=== PATIENT | female | born 1950 | race Caucasian/White ===

== ENCOUNTER 2017-04-27 14:51 | Inpatient (IN) | payer OTHER ==
[~2017-04-27] VITALS: Ht 167.6 cm; Wt 84.7 kg
[~2017-04-27 14:51] MED LIST: ASPI-628 PO; ATRV10T PO; OMEP-113 PO; PARO20TA5 PO
[2017-04-27 14:54] VITALS: BP 137/58; PULSE 84; RESP 16; O2SAT 99
--- NOTE | 2017-04-27 14:58 | ED.REPORT ---
HPI-Neurologic Deficit Date of Service Apr 27, 2017 ED Provider: The patient is a 66 year old female who was brought to the emergency department by her for confusion that began suddenly 30 minutes prior to arrival. Her states the patient came in from the deck and suddenly didn't know anything. She was unaware that they were on vacation or where they were. The patient has no complaints at this time. She is able to walk normally. The patient was at [facility] several years ago for a intracranial hemorrhage s/p ground level fall. Nursing Notes Stated Complaint: LOSS OF MEMORY Chief Complaint: Neuro Symptoms/ Deficits Nursing Notes Reviewed: Yes Allergies: Coded Allergies: citalopram (Verified Allergy, Unknown, 04/20/15) fluoxetine (Verified Allergy, Unknown, 04/20/15) Scheduled Aspirin (Aspirin) 81 Mg Tablet 81 MG PO QAM Atorvastatin (Lipitor) 10 Mg Tab 10 MG PO HS Pantoprazole DR (Pantoprazole DR) 20 Mg Tablet.dr 20 MG PO QAM Paroxetine (Paroxetine) 20 Mg Tablet 20 MG PO HS General Time Seen by Provider: 14:59 Chief Complaint Mental status change Hx Obtained From: Patient, Spouse Arrived By: Walk-in Sudden in Onset?: Yes Onset Occurred: 16 - 30 minutes ago Symptom Duration: Since onset Progression Since Onset: Constant Severity: Current: No pain currently Severity: Maximum: No pain Recent Healthcare: No recent doctor visit, No recent hospitalization Risk Factors NIH Stroke Scale Level of Consciousness: Alert and responsive (0) Ask Month & Age: Both questions right (0) Open/Close Eyes/Hand Latin Dancer: Performs both tasks (0) Horizontal EO Movements: None (0) Visual Parra: No visual loss (0) Facial Palsy: Normal symmetry (0) Right Arm Motor Drift (10s): No drift 10 sec (0) Left Arm Motor Drift (10s): No drift 10 sec (0) Right Leg Motor Drift (5s): No drift 5 sec (0) Left Leg Motor Drift (5s): No drift 5 sec (0) Limb Ataxia FNF/Heel-June: No ataxia (0) Sensation (Arms/Legs/Face): No sensory loss (0) Language Aphasia: No aphasia, normal (0) Dysarthria: No dysarthria, normal (0) Extinction/Inattention: No exctinct/inattent (0) NIHSS Score: 0 Time NIHSS Performed: 15:15 Date NIHSS Performed: Apr 27, 2017 Past Medical History Past Medical History Hx of intracranial hemorrhage s/p fall Past Surgical History Lap band Family History Noncontributory Smoking History Never Smoker Social History Alcohol Use: "Social" Other Social History: Good social support, , From out of town Ambulatory Status Independent Review of Systems Neurologic: Reports: Confusion Complete sys rev & neg: except as marked. Physical Exam Initial Vital Signs Vital Signs (First) Date Time Temp Pulse Resp B/P Pulse Ox O2 Delivery O2 Flow Rate FiO2 04/27/17 14:54 36.4 84 16 137/58 99 Room Air Initial VS: Reviewed ENT: Mucous membranes moist, Conjunctiva normal, No scleral icterus Neck: Supple, Non-tender, Full range of motion Abdomen / GI: Soft, Non-tender, No guarding, No rebound, No distention Lymphatic: No lymphadenopathy Extremities: Vascular intact, Neuro intact, No swelling, No tenderness Skin: Warm, Dry, No cyanosis Psychiatric: Mood/affect normal, Behavior normal, Normal thought content General/Constitutional: Awake, Alert Head / Eyes: Atraumatic, Normocephalic, PERRL, EOMI, No nystagmus Respiratory / Chest: Atraumatic, Breath sounds NL, Breath sounds = bilat, No respiratory distress, No rales, No rhonchi, No wheezing Cardiovascular: Heart rate NL, Regular rhythm, Heart sounds NL, Peripheral circulation NL Neurologic: Oriented X3, Speech NL, No motor deficits, No sensory deficits, CN II - XII intact, Cerebellar NL, Memory NL, Gait NL Vaguely confused. Interpretation & Diagnostics Lab Results Interpretation Result Diagram: 04/27/17 1513 04/27/17 1513 Test 04/27/17 15:13 White Blood Count 5.2th/mm3 (3.8-10.1) Red Blood Count 4.74mil/mm3 (3.90-5.20) Hemoglobin 11.7g/dL (12.0-15.6) Hematocrit 37.5% (35.0-46.0) Mean Corpuscular Volume 79.1fL (81-100) Mean Corpuscular Hemoglobin 24.7pg (27.0-35.0) Mean Corpuscular Hemoglobin Concent 31.2% (32.0-37.0) Red Cell Distribution Width 15.1% (12.3-15.4) Platelet Count 237bil/L (150-400) Neutrophils (%) (Auto) 47.5% (40-74) Lymphocytes (%) (Auto) 40.5% (14-46) Monocytes (%) (Auto) 8.3% (4-12) Eosinophils (%) (Auto) 2.7% (0-5) Basophils (%) (Auto) 1.0% (0-3) Prothrombin Time 10.6sec (8.1-12.5) Prothromb Time International Ratio 0.99ratio Activated Partial Thromboplast Time 23.8sec (22.8-33.0) Sodium Level 143mEq/L (134-144) Potassium Level 3.7mEq/L (3.5-5.2) Chloride Level 103mEq/L (97-108) Carbon Dioxide Level 21mmol/L (18-29) Blood Urea Nitrogen 12mg/dL (8-27) Creatinine 1.01mg/dL (0.57-1.00) Estimat Glomerular Filtration Rate 79mL/min (>59) Glucose Level 97mg/dL (60-99) Calcium Level 9.8mg/dL (8.5-10.1) Total Bilirubin 0.6mg/dL (0.0-1.2) Aspartate Amino Transf (AST/SGOT) 20U/L (0-50) Alanine Aminotransferase (ALT/SGPT) 10U/L (0-32) Alkaline Phosphatase 81U/L (25-165) Troponin T < 0.010ug/L (0.0-0.011) Total Protein 6.9g/dL (6.4-8.4) Albumin 4.1g/dL (3.4-5.0) Hold Sinclair Top Tube Received (Received) Alcohols < 10mg/dL (0-10) ECG Interpretation ECG Interpretation: Sinus rhythm with a rate of 66 bpm Time: 15:16 Interpreted by: ED physician X-Ray Chest Interpretation Chest Xray Interpretation: IMPRESSION: No acute cardiopulmonary findings. Dictated by: Sirisha Viera M.D. on 04/27/2017 at 15:47 Interpretation / Wet Read by: Interpret - Radiologist CT Head Interpretation IMPRESSION: 1. No acute intracranial findings. 2. Sequela of prior intracranial hemorrhage including encephalomalacia within the bilateral frontal lobes and the right parietal lobe. These findings were discussed with Dr. Reyna at 3:17 PM on 04/27/17. This study fulfills neurological imaging criteria for inclusion or exclusion of acute stroke therapies based on available published neurological guidelines. Dictated by: Sirisha Viera M.D. on 04/27/2017 at 15:11 Study: Head CT no contrast Interpretation / Wet Read by: Interpret - Radiologist Re-Eval/Medical Decision Med Decision/Clinical Course Episode of altered level of consciousness and confusion unclear whether this is a TIA or syncope or other pathology. Initial workup in the ER is negative. The patient is not a TPA candidate as this is not convincingly a CVA. NIH stroke scale is 0. Patient be admitted for further observation and imaging. Source of Hx: Family Re-Evaluation/Progress : Time of Eval: 16:00 Re-Evaluation/Progress Note: Discussed plan for discharge with the patient and her . All questions were addressed. Consultation : Referral / Consult Name: Imelda Osullivan MD Consulted With: Hospitalist Requested Call at: 16:07 Call Returned at: 16:32 [employer]well Operator: Will see patient, Agrees with eval, Agrees with plan, Accepts admit Counseled Regarding: Diagnosis, Lab results, Need for admission Discharge & Departure Impression: Primary Impression: TIA (transient ischemic attack) Transient cerebral ischemia type: unspecified Qualified Code: G45.9 - Transient cerebral ischemic attack, unspecified Disposition: ADMITTED TO HOSPITAL Discharge Condition All VS Reviewed: Yes Condition: Stable Referrals: NOPCP (PCP) Scribe Attestation Portions of this note were transcribed by Judit Caal. I, Dr. Brown personally performed the history, physical exam and medical decision-making; I reviewed and confirmed the accuracy of the information in the transcribed note. Signed by: Carmen Schultz, 04/27/2017 at 1640. Clinton Brown DO Apr 27, 2017 14:58 Judit Caal Apr 27, 2017 15:03
[2017-04-27] MEDS ORDERED: 0.9% Sodium Chloride 1,000 ML IV ONE (15:01)
--- NOTE | 2017-04-27 15:20 | DRSVH ---
PROCEDURE: CT BRAIN (TPA) ([id number]) INDICATIONS: acute confusion TECHNIQUE: Noncontrast 4.5 mm thick angled axial sections acquired from the foramen magnum to the vertex, with c oronal reformats. COMPARISON: , CT, HEAD WITHOUT CONTRAST, 10/11/2011, 21:32. FINDINGS: Image quality: Excellent. CSF spaces: Basal cisterns are patent. No extra-axial fluid collections. The ventricles are symmet amy in size and shape. Brain: No intracranial bleeds or masses. Encephalomalacia is present within the right frontal and pa rietal lobes and the left frontal lobe. This likely represents sequela of prior intracranial hemorrha ge. There is cerebral volume loss for age, with resultant ventricular and sulcal prominence. There a re periventricular and deep white matter chronic small vessel ischemic changes. There is intracrania l internal carotid artery atherosclerosis. Skull and face: Calvarium and visualized facial bones appear intact, without suspicious lesions. Sinuses: Visualized sinuses and mastoids are clear. IMPRESSION: 1. No acute intracranial findings. 2. Sequela of prior intracranial hemorrhage including encephalomalacia within the bilateral frontal l obes and the right parietal lobe. These findings were discussed with Dr. Reyna at 3:17 PM on 04/27/17. This study fulfills neurological imaging criteria for inclusion or exclusion of acute stroke therapie s based on available published neurological guidelines. Dictated by: Sirisha Viera M.D. on 04/27/2017 at 15:11 Approved by: Sirisha Viera M.D. on 04/27/2017 at 15:19
[2017-04-27 15:22] LABS: EOSINOPHILS % (AUTO) 2.7 % (0-5); MONOCYTES % (AUTO) 8.3 % (4-12); Mean Corpuscular Hemoglobin 24.7 pg (27.0-35.0); Mean Corpuscular Volume 79.1 fL (81-100); NEUTROPHILS % (AUTO) 47.5 % (40-74); Platelet Count 237 bil/L (150-400)
[2017-04-27 15:32] LABS: INR 0.99 ratio
[2017-04-27 15:40] LABS: TROPONIN T < 0.010 ug/L (0.0-0.011)
--- NOTE | 2017-04-27 15:50 | DRSVH ---
PROCEDURE: X-RAY CHEST ONE VIEW, PORTABLE ([id number]) INDICATIONS: confusion TECHNIQUE: One view of the chest was acquired. COMPARISON: None. FINDINGS: Surgical changes and devices: Laparoscopic gastric band is noted. Lungs and pleura: No pleural effusions or pneumothorax. Lungs are clear. Mediastinum: Mediastinal contours appear normal. Heart size is normal. Bones and chest wall: No suspicious bony lesions. Overlying soft tissues appear unremarkable. IMPRESSION: No acute cardiopulmonary findings. Dictated by: Sirisha Viera M.D. on 04/27/2017 at 15:47 Approved by: Sirisha Viera M.D. on 04/27/2017 at 15:49
[2017-04-27] MEDS ORDERED: ASPI-973 PO (16:15)
[2017-04-27] MEDS ORDERED: ASPI81TA3 PO (16:15)
[2017-04-27] MEDS ORDERED: PANT20TA2 PO (16:24)
[2017-04-27 16:30] VITALS: BP 118/72; PULSE 63; RESP 16; O2SAT 100
[2017-04-27] MEDS ORDERED: Alum-Mag Hydrox-Simeth 30 mL Suspension PO PRN ×2 (16:35→17:05)
[2017-04-27] MEDS ORDERED: Ondansetron 2 mg/mL 2 mL Inj IVPUSH PRN (16:35)
[2017-04-27] MEDS ORDERED: Polyethylene Glycol (PEG) 17 Gm Powder PO PRN (17:05)
[2017-04-27 17:47] VITALS: BP 123/62; PULSE 64; RESP 20; O2SAT 100
--- NOTE | 2017-04-27 17:58 | HP ---
[address] [address] HISTORY AND PHYSICAL PATIENT: SHANEL KENDRICK : 1950 MR#: [id number] ADMIT: 04/27/2017 JOB ID: [id number] PRIMARY CARE PROVIDER: TERE Botello, [facility]. Patient is admitted from ED, observational status, Red team. CHIEF COMPLAINT: Confusion. HISTORY OF PRESENT ILLNESS: This is a 66-year-old female who was fine this morning, ran some errands, little bit busy, and then went out to get some sun on the deck and she was out there for an hour, hour and a half. was in the house. Around 2 p.m., she came in from the deck and she was confused. She kept asking questions to him, over and over again, the same things, "Did I get my hair fixed today, what day is it, did I call my friend," and she kept asking these over and over again. She looked hot, and as I mentioned, she had been out and had not been drinking. After about 20 minutes of this, the brought the patient to the emergency department, and within 60 minutes, all these symptoms had cleared. She scored an NIH of zero in the emergency department. She is back to baseline. She never had any weakness, dysarthria, or any other focal deficits beyond this mild confusion. The patient did have a concussion in 2009 with brain hemorrhage. Spent several days at [facility] without any interventions. The patient denies any abdominal pain, diarrhea, fevers, headaches, or similar symptoms recently. REVIEW OF SYSTEMS: Complete review of systems obtained, all pertinent positives in HPI above, rest of the review of systems are negative. PAST MEDICAL HISTORY: 1. Hiatal hernia with reflux disease. 2. Lap band surgery several years ago. 3. Depression. 4. Concussion. Spent several days at [facility] in 2009. MEDICATIONS: 1. Aspirin 81 daily. 2. Lipitor 10 daily. 3. Paroxetine [address] daily. ALLERGIES: OMEPRAZOLE. SOCIAL HISTORY: Lives with her . No tobacco, no alcohol use. FAMILY HISTORY: Father of cancer, lung cancer. Mother is healthy. PHYSICAL EXAMINATION: Blood pressure 137/58, pulse 84, respiratory rate 16, O2 sats 99% on room air. Neuro exam is normal. Pskdcr-js-hjai is normal. Xery-eb-qyje is normal. There are no cerebellar signs. There is no pronator drift. There is no weakness to any of her four extremities. There is no sensory loss. The patient is alert, oriented and normal now to me and to her and to patient herself. Eyes: PERRLA. EOMs intact. Mouth shows adequate hydration. Neck is supple. No JVD. No bruits. Cardiac is regular. No murmurs. Lungs clear to auscultation and percussion. Abdomen soft, nonacute, benign. Extremities showed no clubbing, cyanosis, or edema. Her cranial nerves are all intact. IMPRESSION: A 66-year-old female with about one hour of confusion, resolved following being out in the sun for an hour and a half. Differential would be transient ischemic attack; also, possible heat exhaustion also with mild dehydration. PLAN: 1. Possible TIA. Will continue patient's aspirin and Lipitor. Will set patient up for an MRI, MRA, stroke protocol in the morning. She will be cleared by Speech. 2. Possible heat exhaustion. I have cautioned the patient not to be out in the sun so much or to make sure she stays hydrated. Will hydrate her overnight with NS at 80 per hour. 3. Depression. Continue patient's paroxetine. 4. Reflux disease, continue patient's pantoprazole DISPOSITION: Primary care provider is TERE Botello, [facility].
[2017-04-27 18:06] VITALS: PULSE 62
[2017-04-27] MEDS: 0.9% Sodium Chloride 1,000 ML IV SCH (18:22)
--- NOTE | 2017-04-27 18:35 | NUR ---
Admit to Room 248-1 Pt. arrived to room with belongings via wheelchair. Accompanied by . Alert and oriented x 3, vitals stable, denied pain. Pt. states that TIA symptoms have resolved. Pt. teary and c/o anxiety, stating "if I have to be here I just want to sleep and not think about anything". Pt. also c/o nausea that has been occurring s/p eating for a few months. Pt. offered Zofran but declines at this time. Pt. currently resting in bed. Frequent rounding being performed.
[2017-04-27 18:46] LABS: APPEARANCE,URINE HAZY (CLEAR,HAZY); COLOR,URINE YELLOW (YELLOW); OCCULT BLOOD,URINE NEGATIVE (NEGATIVE); PH,URINE 5.5 (5.0-8.0); UROBILINOGEN,URINE NORMAL (NORMAL)
[2017-04-27 18:47] VITALS: BP 128/77; PULSE 64; RESP 14; O2SAT 100
[2017-04-27] MEDS: PARoxetine 20 mg Tablet PO SCH (20:45)
[2017-04-27 21:57] VITALS: BP 122/65; PULSE 72; RESP 17; O2SAT 100
[2017-04-28] VITALS (15 sets, daily range): BP systolic 53–119; BP diastolic 40–77; PULSE 52–69; RESP 12–18; O2SAT 97–99
--- NOTE | 2017-04-28 05:19 | NUR ---
Insomnia Pt. requested medication for insomnia, made MD aware and prn temazepam p.o ordered, given to pt. with effective results, Pt. denies pain/N/V, on tele monitoring SB HR 56 with no ectopy per alarm security or surveillance monitor, VSS afebrile, call light in reach and uses for assistance, hourly checks, all needs attended, will continue to monitor.
[2017-04-28] MEDS: 0.9% Sodium Chloride 1,000 ML IV SCH ×2 (05:48→18:02)
[2017-04-28] MEDS: Pantoprazole 20 mg ER24 Tablet PO SCH (05:53)
--- NOTE | 2017-04-28 08:30 | NUR ---
Orthostatics MD notified that pt quite orthostatic this am. See VS intervention. Pt denied any chest pain, SOB or feeling dizzy but did state she felt "odd" on standing this am and needed to sit back down after standing about 30 seconds to 1 minute. BP recovered quickly once sitting/lying and pt remained free of chest pain or SOB. Fluid rate increased to 100ml/hr and feet elevated in bed. No noted neurologic deficits this am. Will continue to monitor.
--- NOTE | 2017-04-28 08:50 | NUR ---
Blood sugar Pt noted to have low blood sugar of 68 this am. No symptoms noted/reported. Unable to remedy with po intake as pt had nausea and emesis with juice and crackers provided by speech. Per pt, this nausea/emesis has been an ongoing problem for which she has been seeing GI. Per MD, zofralexia and IV dextrose given and blood sugar normalized at 136 after IV infusion of dextrose. Will continue to monitor.
--- NOTE | 2017-04-28 08:52 | NUR ---
Evaluation completed. Please go to "Notes" then click on "Assessments and Notes" (bottom left corner of screen). Then select appropriate discipline tab on top of screen.
[2017-04-28] MEDS: Ondansetron 2 mg/mL 2 mL Inj IVPUSH PRN (09:11)
[2017-04-28 09:36] LABS: BASOPHILS % (AUTO) 0.7 % (0-3); EOSINOPHILS % (AUTO) 3.3 % (0-5); MONOCYTES % (AUTO) 8.4 % (4-12); Mean Corpuscular Hemoglobin 24.7 pg (27.0-35.0); NEUTROPHILS % (AUTO) 42.9 % (40-74); Platelet Count 211 bil/L (150-400)
[2017-04-28 10:40] LABS: APPEARANCE,URINE CLEAR (CLEAR,HAZY); COLOR,URINE YELLOW (YELLOW)
[2017-04-28 10:41] LABS: ICTOTEST,URINE NEGATIVE (Negative); OCCULT BLOOD,URINE NEGATIVE (NEGATIVE); PH,URINE 5.5 (5.0-8.0); UROBILINOGEN,URINE NORMAL (NORMAL)
--- NOTE | 2017-04-28 12:01 | NUR ---
Social Work- Multi-Disciplinary Rounds No Social work needs identified in rounds. UR RN to review pt for inpt status. SW to see pt for routine discharge planning Marcelle Ramírez MSW
--- NOTE | 2017-04-28 14:10 | DRSVH ---
PROCEDURE: MRI STROKE PROTOCOL ([id number]) Pre- and post-contrast brain MRI, non-contrast brain MR angiogram, pre- and postcontrast neck MR mo ogram INDICATIONS: Transient confusion for 60 min TECHNIQUE: Brain: Noncontrast axial T1 spin echo, axial T2 fast spin echo, sagittal and axial FLAIR, coronal T2 fast spin echo, axial gradient echo, axial diffusion and ADC through the brain. After the administr ation of contrast, axial 3D VIBE of the cranial vasculature and brain. Brain MRA: Non-contrast 3-D time of flight MR angiogram, with multiple tmyblvi-baxblommw-cxeaciztqf (MIP) reformats performed. Neck MRA: Axial and sagittal TruFISP through the neck. Coronal dynamic MR angiogram during administ ration of contrast in the arterial and venous phases, with 3-dimenstional tsyowjr-jaznwsjyx-eqspqjnhm n (MIP) reformats constructed from subtraction images. COMPARISON: [facility], CT, BRAIN (TPA), 04/27/2017, 15:08. [facility], CT, HEAD WI THOUT CONTRAST, 10/11/2011, 21:32. FINDINGS: Image quality: Excellent. BRAIN: CSF spaces: Ventricles are normal in size and shape. Basal cisterns are patent. No extra-axial flu id collections. Focal CSF prominence overlying the right greater than left frontal lobes is present. Brain: No acute intracranial bleeds or mass effects. Curvilinear cortical low-grade echo signal int ensity overlies the right greater than left frontal lobes, compatible with remote sequelae of hemorrh age. No evidence of acute hemorrhage. Moderate cortical and subcortical FLAIR signal elevation within the right anterior and anterolateral frontal lobe. Smaller regions of subcortical and cortical FLAIR signal elevation within the left anteromedial frontal and right anterior temporal lobes. Alfred-white matter interface is normal. Diffusion weighted images show no acute ischemic insults. Brainstem sigrid ears normal. Normal intravascular flow voids are present. No abnormal intracranial enhancement. Skull and face: Calvarial marrow signal is normal. Orbits appear normal. Sinuses: Sinuses and mastoids are clear. BRAIN MR ANGIOGRAM: Anterior circulation: Intracranial internal carotid arteries are normal in size and enhancement. Th e flow within the paired anterior cerebral arteries is normal and symmetric. The flow within the mid dle cerebral arteries is normal and symmetric. The anterior communicating artery is seen. No stenos es, occlusions, or aneurysms. Posterior circulation: The visualized portions of the vertebral arteries demonstrate normal caliber, and join to form a normal appearing basilar artery. The flow within the posterior cerebral arteries is normal and symmetric. No stenoses, occlusions, or aneurysms. NECK MR ANGIOGRAM: Marketing Editor T2 imaging through the neck is grossly unremarkable. Thoracic aortic arch is widely patent. There is variant branching anatomy. The left vertebral artery arises directly from the thoracic aortic arch. The innominate, right subclavian, and right vertebral arteries are patent. The right common, internal, and external carotid arteries are patent. The left common, internal, and external carotid arteries are patent. The left vertebral artery is patent. The left subclavian artery is patent. IMPRESSION: BRAIN MRI: 1. No acute intracranial abnormality. No recent infarct. 2. Sequelae of remote intracranial hemorrhage is present. BRAIN MR ANGIOGRAM: Negative cerebral MR angiography. NECK MR ANGIOGRAM: 1. Variant branching anatomy of the thoracic aorta. 2. No internal carotid artery stenosis bilaterally. 3. Patent bilateral vertebral arteries. The estimate of stenosis included in the report of the imaging study was calculated using the NASCET method Dictated by: Chasity Paige M.D. on 04/28/2017 at 14:02 Approved by: Chasity Paige M.D. on 04/28/2017 at 14:08
--- NOTE | 2017-04-28 16:01 | DRSVH ---
[facility] [address] [place] [address] Echocardiogram Report Name: SHANEL KENDRICK MStudy Date: 04/28/2017 Height: 66 in Hospital Exam Location: [facility] Weight: 187 lb Gender: Female BSA: 1.9 m2 : 1950 Age: 66 yrs BP: 93/57 mmHg Reason For Study: Hypotension Ordering Physician: Performed By: Glenda [facility]Saint [facility] Hospital[facility] Interpretation Summary 1) Normal left ventricular thickness, size, wall motion, and systolic function (EF 60-65%). 2) Normal right ventricular size and function. 3) No significant valvular abnormalities. 4) No prior Echo available for comparison. Procedure: A two-dimensional transthoracic echocardiogram with color flow and Doppler was performed. The study quality was technically adequate. There is no prior echocardiogram noted for this patient. The patient was in normal sinus rhythm during the exam. Left Ventricle: The left ventricle is normal in size, wall thickness, and systolic function without any focal wall motion abnormalities. The ejection fraction is estimated to be 60-65%. Assessment of diastolic parameters indicates normal left ventricular diastolic function and normal filling pressures. Right Ventricle: The right ventricle is normal in size, thickness and function. Atria: The left atrial size is normal. Right atrial size is normal. Injection of contrast documented no interatrial shunt. Mitral Valve: The mitral valve is normal in structure and function. There is no mitral regurgitation noted. Aortic Valve: The aortic valve opens well. The aortic valve is trileaflet. There is no aortic valve stenosis. No aortic regurgitation is present. Tricuspid Valve: The tricuspid valve is normal. No tricuspid regurgitation. Pulmonic Valve: The pulmonic valve is normal in structure and function. There is no pulmonic valvular regurgitation. Great Vessels: The aortic root is normal size. The aortic arch is normal in size. The inferior vena cava was not visualized. Pericardium/ Pleura There is no pericardial effusion. There is no pleural effusion. MMode/2D Measurements & Calculations LVIDd: 5.1 cm LA dimension: 3.4 cm RA long axis Aortic Jxn: 2.6 cm LVIDs: 3.2 cm asc Aorta Diam FS: 37.9 % LA A2 area: 25.1 cm RA area IVSd: 1.0 cm LA A4 area: 22.4 cm Ao Arch Diam (Prox LVPWd: 0.90 cm LA length (vol) : 19.8 cm Trans): 2.7 cm RA vol LA vol: 74.4 ml : 63.0 ml LA vol index RA : 32.4 mm/ : 38.3 ml/m2 RVDd major : 5.6 cm LV saba. diameter/BSA LV sys. diameter/BSA RVD1 (basal) RVD2 (mid): 3.0 cm (cm/m^2): 2.6 (cm/m^2): 1.6 Doppler Measurements & Calculations Ao V2 max MV E max azam MV E/A: 1.3 PA V2 max : 174.8 cm/sec : 86.1 cm/sec Med Peak E' Azam : 81.4 cm/sec Ao max PG MV A max azam PA mean PG : 12.2 mmHg : 68.0 cm/sec E/E' med: 9.6 Ao mean PG MV P1/2t: 68.8 msec Lat Peak E' Azam PA Accel Time : 5.0 mmHg : 0.14 sec E/E' lat: 6.6 E/e' average: 8.1 MV A dur: 0.12 sec MV dec time MV P1/2t max azam Ao V2 mean PA V2 mean : 0.24 sec : 98.7 cm/sec : 48.1 cm/sec MVA(P1/2t): 3.2 cm2 Ao V2 VTI: 34.4 cm Reading Physician:04:00 PM
--- NOTE | 2017-04-28 16:08 | NUR ---
Social Work- Screen Note/ Readiness for Discharge Data: EMR reviewed. Pt is a 66 year old female admitted 04/27/17 for possible TIA. Pt's insurance is [employer]. Pt's PCP is TERE Botello. Pt's NOK is Vin Carrillo [phone]. Pt's readmit risk score is 1 low risk. SW met with pt and at bedside regarding discharge plan, SW role explained. Pt alert and oriented x3. Pt [place] in a home with her spouse where she is independent at baseline. 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 Pt has been SBA in her room. Pt received information regarding DPOA at bedside. No concerns related to self-care. Pt to discharge home with to transport via POV. No discharge needs identified at this time. SW placed phone number on whiteboard. SW will continue to follow. Assessment: Pt who is independent at baseline. Plan: No concerns related to self-care. Pt to discharge home with to transport via POV. No discharge needs identified at this time. SW will continue to follow. NYASIA Arredondo
--- NOTE | 2017-04-28 16:43 | NUR ---
Status Pt more stable this am, able to ambulate to bathroom with stable BP maintained. Denied any symptoms of syncope or orthostasis. Able to tolerate ensure clears at lunch time. Taking more po liquids. Family/friends continue to be at bedside. Remains A&O. Will continue to monitor.
[2017-04-28] MEDS: PARoxetine 20 mg Tablet PO SCH (21:05)
--- NOTE | 2017-04-28 21:38 | PCM.PNMED ---
Subjective Date of Service Apr 28, 2017 Subjective The patient has some recurrence of symptoms after her nurse Kt check orthostatic blood pressures today and upon standing her systolic blood pressure dropped to 50-60 and the patient seemed a little bit slow to respond according to nurse Kt. The patient otherwise feels like she is back to her baseline mental status and her agrees with this. However, she complains of nausea and inability to keep any food down. Exam Vital Signs Vital Sign - Last Date Time Temp Pulse Resp B/P Pulse Ox O2 Delivery O2 Flow Rate FiO2 04/28/17 20:00 62 04/28/17 18:06 36.9 14 110/69 98 Room Air Intake and Output 04/27/17 04/27/17 04/28/17 Cumulative From/Thru 15:00 23:00 07:00 04/27/17 14:54 - 04/28/17 05:50 Intake Total 500 ml 907 ml 1407 ml Output Total 150 ml 800 ml 950 ml Balance 350 ml 107 ml 457 ml Intake Oral 0 ml 0 ml IV Total 500 ml 907 ml 1407 ml Output Urine Total 150 ml 800 ml 950 ml # Bowel Movements 0 0 Exam General: Patient is lying supine in bed during my visit and she was in no apparent distress. HEENT: Head is atraumatic and normocephalic. Eyes: Pupils are equally round and reactive to light and accommodation. Extraocular muscles are intact. Sclera are white, anicteric. Subconjunctival mucosa is pink. Ears and nose are unremarkable. Oropharynx: There is no mucosal lesions, there is no thrush, there is no pharyngitis. Neck: Is supple, there are no nodes, or masses or tenderness. Chest: Is clear to auscultation and percussion. There are no rales, rhonchi, wheezes or rubs. Heart: Rate, rhythm is regular. There is no new murmur, rub or gallop. Abdomen: Good bowel sounds are present. Abdomen is obese, soft, nontender, no organomegaly or masses were appreciated. Extremities: Are symmetrical and well perfused. There is no edema, there is no cellulitis, no rash. Neurologic: There are no focal neurological deficits. Cranial nerves II through XII are intact. There are no sensory or motor deficits. Psychiatric: Patients mood is calm and she shows no sign of agitation. Genital: Deferred Rectal: Deferred Lab and Diagnostics Result Diagram: 04/28/1785404/28/17854 Microbiology Name: SHANEL KENDRICK Age/Sex: 66/F Attend Dr: Kurt Dunn Acct: [id number] Unit: [id number] Status: ADM [place] Location: [facility] 248-1 Re04/27/17 Disch: Specimen: [id number] Collected: 04/27/17 Status: COMP Req#: [id number] Received: 04/27/17 Source: RANDOM Sp Desc : ISIDRO Akins Dr: Clinton Brown DO Ordered: URINE CULT Procedure Result Verified Site Microbiology GONZALO CULT URINE Final 04/28/17-0752 Organism 1 MIXED UROGENITAL DANIEL U COLONY COUNT/QUANTITY 50,000-100,000 CFU/ml X-Rays, CTs and MRIs PROCEDURE: MRI STROKE PROTOCOL (PNL-8608) Pre- and post-contrast brain MRI, non-contrast brain MR angiogram, pre- and postcontrast neck MR angiogram INDICATIONS: Transient confusion for 60 min TECHNIQUE: Brain: Noncontrast axial T1 spin echo, axial T2 fast spin echo, sagittal and axial FLAIR, coronal T2 fast spin echo, axial gradient echo, axial diffusion and ADC through the brain. After the administration of contrast, axial 3D VIBE of the cranial vasculature and brain. Brain MRA: Non-contrast 3-D time of flight MR angiogram, with multiple maximum- intensity-projection (MIP) reformats performed. Neck MRA: Axial and sagittal TruFISP through the neck. Coronal dynamic MR angiogram during administration of contrast in the arterial and venous phases, with 3-dimenstional gpazzbf-wvjyuzwrx-mmorptmcpf (MIP) reformats constructed from subtraction images. COMPARISON: [facility], CT, BRAIN (TPA), 04/27/2017, 15:08. [facility], CT, HEAD WITHOUT CONTRAST, 10/11/2011, 21:32. FINDINGS: Image quality: Excellent. BRAIN: CSF spaces: Ventricles are normal in size and shape. Basal cisterns are patent. No extra-axial fluid collections. Focal CSF prominence overlying the right greater than left frontal lobes is present. Brain: No acute intracranial bleeds or mass effects. Curvilinear cortical low- grade echo signal intensity overlies the right greater than left frontal lobes, compatible with remote sequelae of hemorrhage. No evidence of acute hemorrhage. Moderate cortical and subcortical FLAIR signal elevation within the right anterior and anterolateral frontal lobe. Smaller regions of subcortical and cortical FLAIR signal elevation within the left anteromedial frontal and right anterior temporal lobes. Alfred-white matter interface is normal. Diffusion weighted images show no acute ischemic insults. Brainstem appears normal. Normal intravascular flow voids are present. No abnormal intracranial enhancement. Skull and face: Calvarial marrow signal is normal. Orbits appear normal. Sinuses: Sinuses and mastoids are clear. BRAIN MR ANGIOGRAM: Anterior circulation: Intracranial internal carotid arteries are normal in size and enhancement. The flow within the paired anterior cerebral arteries is normal and symmetric. The flow within the middle cerebral arteries is normal and symmetric. The anterior communicating artery is seen. No stenoses, occlusions, or aneurysms. Posterior circulation: The visualized portions of the vertebral arteries demonstrate normal caliber, and join to form a normal appearing basilar artery. The flow within the posterior cerebral arteries is normal and symmetric. No stenoses, occlusions, or aneurysms. 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 Thoracic aortic arch is widely patent. There is variant branching anatomy. The left vertebral artery arises directly from the thoracic aortic arch. The innominate, right subclavian, and right vertebral arteries are patent. The right common, internal, and external carotid arteries are patent. The left common, internal, and external carotid arteries are patent. The left vertebral artery is patent. The left subclavian artery is patent. IMPRESSION: BRAIN MRI: 1. No acute intracranial abnormality. No recent infarct. 2. Sequelae of remote intracranial hemorrhage is present. BRAIN MR ANGIOGRAM: Negative cerebral MR angiography. NECK MR ANGIOGRAM: 1. Variant branching anatomy of the thoracic aorta. 2. No internal carotid artery stenosis bilaterally. 3. Patent bilateral vertebral arteries. The estimate of stenosis included in the report of the imaging study was calculated using the NASCET method Dictated by: Chasity Paige M.D. on 04/28/2017 at 14:02 Approved by: Chasity Paige M.D. on 04/28/2017 at 14:08 Cardiac Echo Impressions Echocardiogram Report Name: SHANEL KENDRICK MStudy Date: 04/28/2017 Height: 66 in Hospital Exam Location: [facility] Weight: 187 lb Gender: Female BSA: 1.9 m2 : 1950 Age: 66 yrs BP: 93/57 mmHg Reason For Study: Hypotension Ordering Physician: Performed By: [facility] Interpretation Summary 1) Normal left ventricular thickness, size, wall motion, and systolic function (EF 60-65%). 2) Normal right ventricular size and function. 3) No significant valvular abnormalities. 4) No prior Echo available for comparison. Assessment & Plan The patient is a 66-year-old female with about one hour of confusion, resolved following being out in the sun for an hour and a half. The patient's convinced her to come to the emergency room. She received Dilaudid and then admitted to the hospitalist service for further evaluation and treatment. # Possible TIA, present at the time of admission. Improved - Will continue patient's aspirin and Lipitor. - MRI, MRA, per stroke protocol, failed to reveal the source of her problem. - She was cleared by Speech therapy. - Possibly secondary to severe orthostatic hypotension # Orthostatic hypotension, present at time of admission. Active with his systolic blood pressure dropping to 50-60 when standing and reproducing some of her symptoms. - Suspect this is due to dehydration as patient has been unable to tolerate much in the way of by mouth liquids and/or foods. This appears after listening to her history to be due to her lap band which she has been told needs to have some of "the fill" removed. - The dehydration was likely exacerbated by her lying in the sun for an hour and a half prior to admission. - Continue IV hydration overnight - As patient is unusually bautista, will check serum cortisol level to rule out [place]'s disease, which may also explain her orthostatic hypotension. # Morbid obesity, present times admission. Stable - Patient lost approximately 80 pounds since her lap band procedure over 10 years ago. - Patient will likely need to have some of the "fill" removed from her lap band. # Depression, present at the time of admission. Chronic - Continue patient's paroxetine. #Gastroesophageal Reflux disease, present at the time of admission. Chronic - We will continue patient's pantoprazole DREmily Disposition: We will recheck orthostatic pressures in a.m. and if normalized and the cortisol level is normal we will likely discharge the patient home. Pain Evaluation: Adequate Pain Control GI Prophylaxis: Proton Pump Inhibitor VTE Prophylaxis: Sub-Q Enoxaparin VTE Mechanical Devices: Intermittant Pneumatic CD Resuscitation Status: CPR: Attempt Resuscitation [place] MD Apr 28, 2017 21:38
[2017-04-29] VITALS (10 sets, daily range): BP systolic 87–107; BP diastolic 50–63; PULSE 53–71; RESP 16–18; O2SAT 97–100
[2017-04-29] MEDS: 0.9% Sodium Chloride 1,000 ML IV SCH ×3 (04:02→22:14)
[2017-04-29] MEDS: Pantoprazole 20 mg ER24 Tablet PO SCH (06:09)
--- NOTE | 2017-04-29 06:21 | NUR ---
GI Pt had 100mls of white, milky emesis after drinking part of an ensure. Pt states she couldn't tolerate it. Pt drinking some water fine throughout shift as well as Ensure clear apple. Pt states she is going to buy some upon discharge to have at home.
[2017-04-29 06:59] LABS: BASOPHILS % (AUTO) 0.8 % (0-3); EOSINOPHILS % (AUTO) 3.9 % (0-5); MONOCYTES % (AUTO) 9.2 % (4-12); Mean Corpuscular Hemoglobin 25.1 pg (27.0-35.0); Mean Corpuscular Volume 80.3 fL (81-100); NEUTROPHILS % (AUTO) 32.4 % (40-74); Platelet Count 180 bil/L (150-400)
[2017-04-29 07:42] LABS: Magnesium 1.8 mg/dL (1.6-2.6)
--- NOTE | 2017-04-29 09:52 | NUR ---
Dizziness and GI Orthostatic vital signs performed this morning. Lying 91/50, HR 53; sitting 97/62, HR 55; standing 87/61, HR 61. Pt. reported mild dizziness with position changes, otherwise she thought she is back to her baseline. Poor oral intake due to "hard to hold down anything. It feels like food stuck right here." (pointed at lower esophagus). She denied nausea and vomiting but had occasions where food regurgitated up to her mouth. She C/O having difficulty with oral intake for months. She plan to see her doctor soon and to have her lap band reassessed. Addendum: 04/29/17 at 1223 by FABIOLA CURRAN RN Correction: standing HR is 72
[2017-04-29] MEDS: Ondansetron 2 mg/mL 2 mL Inj IVPUSH PRN (14:47)
--- NOTE | 2017-04-29 17:00 | NUR ---
spiritual care: pt request brief conversational visit. pt anticipating discharge. pt expressing concerns about continued condition and pain.
--- NOTE | 2017-04-29 18:36 | NUR ---
GI Poor intake today. Pt. declined breakfast. She ate 25% of lunch but then vomited x2 after lunch. PRN Zofran IV helpful. For dinner, pt. sat in upright position and managed to hold down bites and sips slowly. No C/O nausea and vomiting after dinner. Pt. will be NPO after midnight. She is scheduled for GI barium study tomorrow. Pt. agreeable with plan.
[2017-04-29] MEDS: PARoxetine 20 mg Tablet PO SCH (20:44)
--- NOTE | 2017-04-29 21:57 | PCM.PNMED ---
Subjective Date of Service Apr 29, 2017 Subjective The patient states she feels a little bit worse today than she did yesterday. She states she slept well she just does not have any energy. She continued to have orthostatic symptoms of dizziness when the nurse was checking her orthostatic blood pressures. Patient tried to eat this afternoon 25% of her meal and then vomited twice soon thereafter. She is somewhat discouraged with her situation as she is unable to eat without vomiting.. Exam Vital Signs Vital Sign - Last Date Time Temp Pulse Resp B/P Pulse Ox O2 Delivery O2 Flow Rate FiO2 04/29/17 20:41 36.8 59 18 102/56 98 Room Air Intake and Output 04/28/17 04/28/17 04/29/17 Cumulative From/Thru 15:00 23:00 07:00 04/27/17 14:54 - 04/29/17 06:17 Intake Total 1553 ml 1405 ml 4365 ml Output Total 650 ml 900 ml 2500 ml Balance 903 ml 505 ml 1865 ml Intake Oral 500 ml 140 ml 640 ml IV Total 1053 ml 1265 ml 3725 ml Output Urine Total 650 ml 800 ml 2400 ml Emesis 100 ml 100 ml # Bowel Movements 0 0 Exam General: Patient is lying supine in bed during my visit and she was in no apparent distress. However, she appeared more fatigued. HEENT: Head is atraumatic and normocephalic. Eyes: Pupils are equally round and reactive to light and accommodation. Extraocular muscles are intact. Sclera are white, anicteric. Subconjunctival mucosa is pink. Ears and nose are unremarkable. Oropharynx: There are no mucosal lesions, there is no thrush , there is no pharyngitis. Neck: Is supple, there are no nodes, or masses or tenderness. Chest: Is clear to auscultation and percussion. There are no rales, rhonchi, wheezes or rubs. Heart: Rate, rhythm is regular. There is no new murmur, rub or gallop. Abdomen: Good bowel sounds are present. Abdomen is obese, soft, nontender, no organomegaly or masses were appreciated. Extremities: Are symmetrical and well perfused. There is no edema, there is no cellulitis, no rash. Neurologic: There are no focal neurological deficits. Cranial nerves II through XII are intact. There are no sensory or motor deficits. Psychiatric: Patients mood is calm and she shows no sign of agitation. Genital: Deferred Rectal: Deferred Lab and Diagnostics Result Diagram: 04/29/1735 04/29/17 0635 Microbiology Name: SHANEL KENDRICK Age/Sex: 66/F Attend Dr: Kurt Dunn Acct: [id number] Unit: [id number] Status: ADM Camryn Location: [facility] 248-1 Re04/27/17 Disch: Specimen: [id number] Collected: 04/27/17 Status: COMP Req#: [id number] Received: 04/27/17 Source: RANDOM Sp Desc : ISIDRO Akins Dr: Clinton Brown DO Ordered: URINE CULT Procedure Result Verified Site Microbiology GONZALO CULT URINE Final 04/28/17-0752 Organism 1 MIXED UROGENITAL DANIEL U COLONY COUNT/QUANTITY 50,000-100,000 CFU/ml X-Rays, CTs and MRIs PROCEDURE: MRI STROKE PROTOCOL (PNL-8608) Pre- and post-contrast brain MRI, non-contrast brain MR angiogram, pre- and postcontrast neck MR angiogram INDICATIONS: Transient confusion for 60 min TECHNIQUE: Brain: Noncontrast axial T1 spin echo, axial T2 fast spin echo, sagittal and axial FLAIR, coronal T2 fast spin echo, axial gradient echo, axial diffusion and ADC through the brain. After the administration of contrast, axial 3D VIBE of the cranial vasculature and brain. Brain MRA: Non-contrast 3-D time of flight MR angiogram, with multiple maximum- intensity-projection (MIP) reformats performed. Neck MRA: Axial and sagittal TruFISP through the neck. Coronal dynamic MR angiogram during administration of contrast in the arterial and venous phases, with 3-dimenstional wvoovtw-quertczrv-zwzhyzfeor (MIP) reformats constructed from subtraction images. COMPARISON: [facility], CT, BRAIN (TPA), 04/27/2017, 15:08. [facility], CT, HEAD WITHOUT CONTRAST, 10/11/2011, 21:32. FINDINGS: Image quality: Excellent. BRAIN: CSF spaces: Ventricles are normal in size and shape. Basal cisterns are patent. No extra-axial fluid collections. Focal CSF prominence overlying the right greater than left frontal lobes is present. Brain: No acute intracranial bleeds or mass effects. Curvilinear cortical low- grade echo signal intensity overlies the right greater than left frontal lobes, compatible with remote sequelae of hemorrhage. No evidence of acute hemorrhage. Moderate cortical and subcortical FLAIR signal elevation within the right anterior and anterolateral frontal lobe. Smaller regions of subcortical and cortical FLAIR signal elevation within the left anteromedial frontal and right anterior temporal lobes. Alfred-white matter interface is normal. Diffusion weighted images show no acute ischemic insults. Brainstem appears normal. Normal intravascular flow voids are present. No abnormal intracranial enhancement. Skull and face: Calvarial marrow signal is normal. Orbits appear normal. Sinuses: Sinuses and mastoids are clear. BRAIN MR ANGIOGRAM: Anterior circulation: Intracranial internal carotid arteries are normal in size and enhancement. The flow within the paired anterior cerebral arteries is normal and symmetric. The flow within the middle cerebral arteries is normal and symmetric. The anterior communicating artery is seen. No stenoses, occlusions, or aneurysms. Posterior circulation: The visualized portions of the vertebral arteries demonstrate normal caliber, and join to form a normal appearing basilar artery. The flow within the posterior cerebral arteries is normal and symmetric. No stenoses, occlusions, or aneurysms. 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 Thoracic aortic arch is widely patent. There is variant branching anatomy. The left vertebral artery arises directly from the thoracic aortic arch. The innominate, right subclavian, and right vertebral arteries are patent. The right common, internal, and external carotid arteries are patent. The left common, internal, and external carotid arteries are patent. The left vertebral artery is patent. The left subclavian artery is patent. IMPRESSION: BRAIN MRI: 1. No acute intracranial abnormality. No recent infarct. 2. Sequelae of remote intracranial hemorrhage is present. BRAIN MR ANGIOGRAM: Negative cerebral MR angiography. NECK MR ANGIOGRAM: 1. Variant branching anatomy of the thoracic aorta. 2. No internal carotid artery stenosis bilaterally. 3. Patent bilateral vertebral arteries. The estimate of stenosis included in the report of the imaging study was calculated using the NASCET method Dictated by: Chasity Paige M.D. on 04/28/2017 at 14:02 Approved by: Chasity Paige M.D. on 04/28/2017 at 14:08 Cardiac Echo Impressions Echocardiogram Report Name: SHANEL KENDRICK MStudy Date: 04/28/2017 Height: 66 in Hospital Exam Location: [facility] Weight: 187 lb Gender: Female BSA: 1.9 m2 : 1950 Age: 66 yrs BP: 93/57 mmHg Reason For Study: Hypotension Ordering Physician: Performed By: Glenda Hart HOSPITALIST [facility] Interpretation Summary 1) Normal left ventricular thickness, size, wall motion, and systolic function (EF 60-65%). 2) Normal right ventricular size and function. 3) No significant valvular abnormalities. 4) No prior Echo available for comparison. Assessment & Plan The patient is a 66-year-old female with about one hour of confusion, resolved following being out in the sun for an hour and a half. The patient's convinced her to come to the emergency room. She received Dilaudid and then admitted to the hospitalist service for further evaluation and treatment. # Possible TIA, present at the time of admission. Improved - Will continue patient's aspirin and Lipitor. - MRI, MRA, per stroke protocol, failed to reveal the source of her problem. - She was cleared by Speech therapy. - I suspect his symptoms were secondary to severe orthostatic hypotension, which was demonstrated here after admission. # Orthostatic hypotension, present at time of admission. Active with his systolic blood pressure dropping to 50-60 when standing and reproducing some of her symptoms. - Suspect this is due to dehydration as patient has been unable to tolerate much in the way of by mouth liquids and/or foods. This was apparent after listening to her history to be due to her lap band which she has been told needs to have some of "the fill" removed. - The dehydration was likely exacerbated by her lying in the sun for an hour and a half prior to admission. - Continue IV hydration as patient continues to have some orthostatic hypotension and increase in pulse rate when standing along with associated dizziness. Also patient continues to have extremely poor by mouth intake and after eating 25% of her meal today she vomited twice. - As patient is unusually bautista, will check serum cortisol level to rule out [place]'s disease, which may also explain her orthostatic hypotension. Cortisol level is still pending. # Poor by mouth intake leading to the above problems, present at the time of admission. Active - Patient tried eating this afternoon and after eating 25% of her meal she vomited twice. Patient is becoming very frustrated with her situation. - I have consulted Dr. Ashwini lópez of general surgery who has suggested an upper GI to further evaluate her anatomy. - Patient may need some of the "fill" removed from her lap band. # Morbid obesity, present times admission. Stable - Patient lost approximately 80 pounds since her lap band procedure over 10 years ago. - Patient will likely need to have some of the "fill" removed from her lap band. # Depression, present at the time of admission. Chronic - Continue patient's paroxetine. #Gastroesophageal Reflux disease, present at the time of admission. Chronic - We will continue patient's pantoprazole DREmily Disposition: We will continue IV hydration and check results of the upper GI study as recommended by surgery. Pain Evaluation: Adequate Pain Control GI Prophylaxis: Proton Pump Inhibitor VTE Prophylaxis: Sub-Q Enoxaparin VTE Mechanical Devices: Intermittant Pneumatic CD Resuscitation Status: CPR: Attempt Resuscitation Kurt Dunn MD Apr 29, 2017 21:57
[2017-04-29] MEDS ORDERED: Magnesium Sulf 2 Gm/50mL Water 2 GM in IV Premix 1 EACH IV ONE (22:15)
--- NOTE | 2017-04-29 23:34 | CONS ---
[address] [address] CONSULTATION REPORT PATIENT: SHANEL KENDRICK : 1950 MR#: [id number] ADMIT: 04/27/2017 JOB ID: [id number] DATE OF SERVICE: 04/29/2017 CHIEF COMPLAINT: A 66-year-old lady with repeated vomiting seen in consultation at the request of Kurt Dunn MD. HISTORY OF PRESENT ILLNESS: The patient is a 66-year-old lady who had laparoscopic gastric banding done in [place] about 12 years ago. She reportedly did relatively well after that until 2012 when she had problems with tolerating food prompting investigation. She reportedly saw Gastroenterology in [place] who got an upper GI and also performed an endoscopy and told her she had a hiatal hernia. At that time, she tells me that there was nothing that was done but after the endoscopy, she felt better and she felt like she was doing okay. Again, about a couple of months ago, she started having recurrent problems with tolerating any food with repeated emesis, and she saw Dr. Holt who reviewed her endoscopy and adjusted her proton pump inhibitor treatment, but she reportedly again went to [place] to see a television installer helper who repeated an endoscopy and suggested to her that maybe she should have some of the fill in the band removed, but she did not actually see a surgeon over the last 12 years. She comes into the hospital a couple of days ago with confusion and was diagnosed with a possible TIA or sun stroke or dehydration and Dr. Dunn asked me to see her in consultation to see if we could take care of the problems with her eating right now. She has tried and now able to keep some liquids down. OTHER MEDICAL PROBLEMS: 1. Gastroesophageal reflux disease. 2. Depression. 3. Concussion. Prior operations: Laparoscopic gastric banding 12 years ago. SOCIAL HISTORY: She does not smoke or consume alcohol. She is here with her . FAMILY HISTORY: Father had lung cancer. Mother is doing well. MEDICATIONS: 1. Baby aspirin. 2. Lipitor. 3. Paroxetine. 4. Pantoprazole. INVESTIGATIONS: Upper GI from December 16, 2012 showed moderate sized hiatal hernia with a large area of the stomach above the gastric band. PHYSICAL EXAMINATION: A 66-year-old lady in no acute distress. BMI 30.1, temperature 36.8, pulse 60, blood pressure 95/53, saturating 100% on room air. Eyes: Normal pupils, conjunctivae. Ears, nose, and throat: Normal external appearance. Respiratory: Normal effort, clear to auscultation. Cardiovascular: Regular rate and rhythm. Gastrointestinal: Abdomen is soft, nontender. Port from the gastric band palpable in the left upper quadrant. Neurologic: No obvious gross deficits. Psych: Alert, appropriate. Genitourinary: Deferred. Skin: Normal. ASSESSMENT AND PLAN: A 66-year-old lady with hiatal hernia and repeated vomiting. Could be contributed by mechanical or functional disturbance of the gastric function from the gastric band. I suggested that she ultimately needs the care of her bariatric surgeon who might help her with the removal of the gastric band or conversion to a Stephanie-en-Y gastric bypass. At this point, taking the fluid from the band might be helpful or not, but I think for the most systematic approach by getting an upper GI right now and then removing the fill from the gastric band and repeating another upper GI under the guidance of the bariatric surgeon who ultimately would take over her care would be most appropriate. At this point, she seems to be doing okay in terms of tolerating fluids, and I do not see a reason for urgent intervention. I discussed the case with Dr. Dunn and the patient and they are comfortable with the plan and we will make a referral appropriately.
[2017-04-30] VITALS (9 sets, daily range): BP systolic 100–115; BP diastolic 64–73; PULSE 55–64; RESP 17–19; O2SAT 99–100
[2017-04-30] MEDS: Pantoprazole 20 mg ER24 Tablet PO SCH (05:41)
--- NOTE | 2017-04-30 06:31 | NUR ---
NPO/GI Pt NPO since midnight. Pt had poor oral intake with no episode of vomiting.
[2017-04-30 07:15] LABS: BASOPHILS % (AUTO) 1.1 % (0-3); EOSINOPHILS % (AUTO) 3.8 % (0-5); MONOCYTES % (AUTO) 7.3 % (4-12); Mean Corpuscular Hemoglobin 24.8 pg (27.0-35.0); NEUTROPHILS % (AUTO) 39.6 % (40-74); Platelet Count 174 bil/L (150-400)
[2017-04-30] MEDS: 0.9% Sodium Chloride 1,000 ML IV SCH ×2 (12:31→20:53)
--- NOTE | 2017-04-30 16:05 | NUR ---
Social Work: Multi-Disciplinary Rounds/Continued Discharge Planning D: EMR reviewed. Pt is on day 3 of hospitalization. Per MD in rounds, pt to have consult with GI for upper GI tract at 1330 on 05/01. MD suspects a lap band obstruction and lap band fill may need to be reduced. Pt likely to stay at hospital another 1-2 days pending GI consult. A: Pt who is independent at baseline. P: Pt to discharge home via POV when medically stable. Per MD, SW does not anticipate any discharge needs at this time. SW will continue to follow for any discharge needs that may arise. NYASIA Walker
--- NOTE | 2017-04-30 16:47 | DRSVH ---
PROCEDURE: X-RAY BARIUM UPPER GI STUDY ([id number]) INDICATIONS: Nausea and vomiting with any PO intake. COMPARISON: None. FINDINGS: KUB: Preprocedural card checker film demonstrates a normal bowel gas pattern. No suspicious abdominal calc ifications. Visualized solid organ contours appear normal. Bony structures appear unremarkable. Esophagus: There is normal esophageal peristalsis. No strictures, extrinsic mass effects, or divert icula. Significant multiple episodes of gastroesophageal reflux were identified extending to the mide sophagus. Stomach: A lap band is noted surrounding the stomach. Throughout the course of the examination, contr ast flowed freely up the stomach. However, even at the conclusion of the procedure, there was no cont rast transit from the stomach into the small bowel. IMPRESSION: 1. Retention of contrast within the stomach gastric noted above. This could be secondary to lap band dysfunction or gastric dysmotility. 2. Prominent gastroesophageal reflux. Dictated by: Dominique Mcneil M.D. on 04/30/2017 at 16:44 Approved by: Dominique Mcneil M.D. on 04/30/2017 at 16:45
--- NOTE | 2017-04-30 17:27 | NUR ---
Barium Study/Emesis Patient left floor for approximately an hour at 1345 for Barium Swallow Study. Around 1530, patient reported emesis. Appeared to be barium in content and 200mL. Patient has had no other PO intact d/t lack of appetite at this time.
--- NOTE | 2017-04-30 18:52 | PCM.PNMED ---
Subjective Date of Service Apr 30, 2017 Subjective The patient is feeling a little bit better today than she was yesterday. However, she is still unable to eat. She vomited twice after eating 25% of her lunch yesterday she states and therefore just had a few tiny strands of food at dinner time. She is less dizzy and able to ambulate now without dizziness on IV fluids. She has no other new complaints. Exam Vital Signs Vital Sign - Last Date Time Temp Pulse Resp B/P Pulse Ox O2 Delivery O2 Flow Rate FiO2 04/30/17 15:28 36.6 56 18 112/69 100 Room Air Intake and Output 04/29/17 04/29/17 04/30/17 Cumulative From/Thru 15:00 23:00 07:00 04/27/17 14:54 - 04/30/17 05:52 Intake Total 1485 ml 1202 ml 7052 ml Output Total 880 ml 1200 ml 4580 ml Balance 605 ml 2 ml 2472 ml Intake Oral 300 ml 100 ml 1040 ml IV Total 1185 ml 1102 ml 6012 ml Output Urine Total 775 ml 1200 ml 4375 ml Emesis 105 ml 205 ml # Bowel Movements 0 0 Exam General: Patient is lying supine in bed during my visit and she was in no apparent distress. The patient was seen ambulating to and from the bathroom without any difficulties today. HEENT: Head is atraumatic and normocephalic. Eyes: Pupils are equally round and reactive to light and accommodation. Extraocular muscles are intact. Sclera are white, anicteric. Subconjunctival mucosa is pink. Ears and nose are unremarkable. Oropharynx: There are no mucosal lesions, there is no thrush , there is no pharyngitis. Neck: Is supple, there are no nodes, or masses or tenderness. Chest: Is clear to auscultation and percussion. There are no rales, rhonchi, wheezes or rubs. Heart: Rate, rhythm is regular. There is no new murmur, rub or gallop. Abdomen: Good bowel sounds are present. Abdomen is obese, soft, nontender, no organomegaly or masses were appreciated. Extremities: Are symmetrical and well perfused. There is no edema, there is no cellulitis, no rash. Neurologic: There are no focal neurological deficits. Cranial nerves II through XII are intact. There are no sensory or motor deficits. Psychiatric: Patients mood is calm and she shows no sign of agitation. Genital: Deferred Rectal: Deferred Lab and Diagnostics Result Diagram: 04/30/1764704/30/17647 Microbiology Name: SHANEL KENDRICK Age/Sex: 66/F Attend Dr: Kurt Dunn Acct: [id number] Unit: [id number] Status: ADM Camryn Location: [facility] [place] 248-1 Re04/27/17 Disch: Specimen: [id number] Collected: 04/27/17 Status: COMP Req#: [id number] Received: 04/27/17 Source: RANDOM Sp Desc : ISIDRO Akins Dr: Clinton Brown DO Ordered: URINE CULT Procedure Result Verified Site Microbiology GONZALO CULT URINE Final 04/28/17-0752 Organism 1 MIXED UROGENITAL DANIEL U COLONY COUNT/QUANTITY 50,000-100,000 CFU/ml X-Rays, CTs and MRIs PROCEDURE: MRI STROKE PROTOCOL ([id number]) Pre- and post-contrast brain MRI, non-contrast brain MR angiogram, pre- and postcontrast neck MR angiogram INDICATIONS: Transient confusion for 60 min TECHNIQUE: Brain: Noncontrast axial T1 spin echo, axial T2 fast spin echo, sagittal and axial FLAIR, coronal T2 fast spin echo, axial gradient echo, axial diffusion and ADC through the brain. After the administration of contrast, axial 3D VIBE of the cranial vasculature and brain. Brain MRA: Non-contrast 3-D time of flight MR angiogram, with multiple maximum- intensity-projection (MIP) reformats performed. Neck MRA: Axial and sagittal TruFISP through the neck. Coronal dynamic MR angiogram during administration of contrast in the arterial and venous phases, with 3-dimenstional hygugql-agvrelppf-upssvswifv (MIP) reformats constructed from subtraction images. COMPARISON: , CT, BRAIN (TPA), 04/27/2017, 15:08. [facility], CT, HEAD WITHOUT CONTRAST, 10/11/2011, 21:32. FINDINGS: Image quality: Excellent. BRAIN: CSF spaces: Ventricles are normal in size and shape. Basal cisterns are patent. No extra-axial fluid collections. Focal CSF prominence overlying the right greater than left frontal lobes is present. Brain: No acute intracranial bleeds or mass effects. Curvilinear cortical low- grade echo signal intensity overlies the right greater than left frontal lobes, compatible with remote sequelae of hemorrhage. No evidence of acute hemorrhage. Moderate cortical and subcortical FLAIR signal elevation within the right anterior and anterolateral frontal lobe. Smaller regions of subcortical and cortical FLAIR signal elevation within the left anteromedial frontal and right anterior temporal lobes. Alfred-white matter interface is normal. Diffusion weighted images show no acute ischemic insults. Brainstem appears normal. Normal intravascular flow voids are present. No abnormal intracranial enhancement. Skull and face: Calvarial marrow signal is normal. Orbits appear normal. Sinuses: Sinuses and mastoids are clear. BRAIN MR ANGIOGRAM: Anterior circulation: Intracranial internal carotid arteries are normal in size and enhancement. The flow within the paired anterior cerebral arteries is normal and symmetric. The flow within the middle cerebral arteries is normal and symmetric. The anterior communicating artery is seen. No stenoses, occlusions, or aneurysms. Posterior circulation: The visualized portions of the vertebral arteries demonstrate normal caliber, and join to form a normal appearing basilar artery. The flow within the posterior cerebral arteries is normal and symmetric. No stenoses, occlusions, or aneurysms. NECK MR ANGIOGRAM: Casing Crew Pusher T2 imaging through the neck is grossly unremarkable. Thoracic aortic arch is widely patent. There is variant branching anatomy. The left vertebral artery arises directly from the thoracic aortic arch. The innominate, right subclavian, and right vertebral arteries are patent. The right common, internal, and external carotid arteries are patent. The left common, internal, and external carotid arteries are patent. The left vertebral artery is patent. The left subclavian artery is patent. IMPRESSION: BRAIN MRI: 1. No acute intracranial abnormality. No recent infarct. 2. Sequelae of remote intracranial hemorrhage is present. BRAIN MR ANGIOGRAM: Negative cerebral MR angiography. NECK MR ANGIOGRAM: 1. Variant branching anatomy of the thoracic aorta. 2. No internal carotid artery stenosis bilaterally. 3. Patent bilateral vertebral arteries. The estimate of stenosis included in the report of the imaging study was calculated using the NASCET method Dictated by: Chasity Paige M.D. on 04/28/2017 at 14:02 Approved by: Chasity Paige M.D. on 04/28/2017 at 14:08 Cardiac Echo Impressions Echocardiogram Report Name: SHANEL KENDRICK MStudy Date: 04/28/2017 Height: 66 in Hospital Exam Location: [facility] Weight: 187 lb Gender: Female BSA: 1.9 m2 : 1950 Age: 66 yrs BP: 93/57 mmHg Reason For Study: Hypotension Ordering Physician: Performed By: Glenda Hart HOSPITALIST [facility] Interpretation Summary 1) Normal left ventricular thickness, size, wall motion, and systolic function (EF 60-65%). 2) Normal right ventricular size and function. 3) No significant valvular abnormalities. 4) No prior Echo available for comparison. Assessment & Plan The patient is a 66-year-old female with about one hour of confusion, resolved following being out in the sun for an hour and a half. The patient's convinced her to come to the emergency room. She received Dilaudid and then admitted to the hospitalist service for further evaluation and treatment. # Possible TIA, present at the time of admission. Improved - Will continue patient's aspirin and Lipitor. - MRI, MRA, per stroke protocol, failed to reveal the source of her problem. - She was cleared by Speech therapy. - I suspect his symptoms were secondary to severe orthostatic hypotension, which was demonstrated here after admission. # Orthostatic hypotension, present at time of admission. Active with his systolic blood pressure dropping to 50-60 when standing and reproducing some of her symptoms. - Suspect this is due to dehydration as patient has been unable to tolerate much in the way of by mouth liquids and/or foods. This was apparent after listening to her history to be due to her lap band which she has been told needs to have some of "the fill" removed. - The dehydration was likely exacerbated by her lying in the sun for an hour and a half prior to admission. - Continue IV hydration as patient continues to have some orthostatic hypotension and increase in pulse rate when standing along with associated dizziness. Also patient continues to have extremely poor by mouth intake and after eating 25% of her meal yesterday she vomited twice. - As patient is unusually bautista, we checked an early a.m. serum cortisol level to rule out [place]'s disease, which could explain her orthostatic hypotension. However, the cortisol level was normal. # Poor by mouth intake leading to the above problems, present at the time of admission. Active - Patient tried eating this afternoon and after eating 25% of her meal she vomited twice. Patient is becoming very frustrated with her situation. - I have consulted Dr. Ashwini lópez of general surgery who has suggested an upper GI to further evaluate her anatomy. - Patient may need some of the "fill" removed from her lap band. - The upper GI showed the following: "Esophagus: There is normal esophageal peristalsis. No strictures, extrinsic mass effects, or diverticula. Significant multiple episodes of gastroesophageal reflux were identified extending to the midesophagus. Stomach: A lap band is noted surrounding the stomach. Throughout the course of the examination, contrast flowed freely up the stomach. However, even at the conclusion of the procedure, there was no contrast transit from the stomach into the small bowel". - We will reconsult general surgery for their opinion as to what could be done to help the patient with this problem of retention of gastric contents and presenting with severe dehydration and hypotension causing altered level of consciousness. # Morbid obesity, present times admission. Stable - Patient lost approximately 80 pounds since her lap band procedure over 10 years ago. - We will repeat consult general surgery for retention of gastric contents as mentioned above. # Depression, present at the time of admission. Chronic - Continue patient's paroxetine. # Gastroesophageal Reflux disease, present at the time of admission. Chronic - We will continue patient's pantoprazole DR. # Macrocytic anemia, present at the time of admission. Active - Was likely not so obvious on admission, as this patient was so dehydrated at the time of admission. - We will check a serum iron panel and B12 and folate levels as patient may have malnutrition to the above factors. Disposition: We will continue IV hydration and reconsult general surgery. Pain Evaluation: Adequate Pain Control GI Prophylaxis: Proton Pump Inhibitor VTE Prophylaxis: Sub-Q Enoxaparin VTE Mechanical Devices: Intermittant Pneumatic CD Resuscitation Status: CPR: Attempt Resuscitation Kurt Dunn MD Apr 30, 2017 18:52
[2017-04-30] MEDS: PARoxetine 20 mg Tablet PO SCH (20:53)
[2017-05-01 00:34] VITALS: BP 113/72; PULSE 63; RESP 18; O2SAT 99
[2017-05-01] MEDS: Pantoprazole 20 mg ER24 Tablet PO SCH (05:43)
[2017-05-01 05:50] VITALS: BP_SYST 118; BP_SYST 120; BP_SYST 90; BP_DIAS 59; BP_DIAS 68; BP_DIAS 74; PULSE 66; PULSE 69; RESP 16; O2SAT 97
--- NOTE | 2017-05-01 06:01 | NUR ---
Emesis Pt had 2 bouts of emesis after eating small amount of food on previous shift. Pt states "the food felt like it got stuck in my esophagus and would not go down."
[2017-05-01 06:59] LABS: BASOPHILS % (AUTO) 0.9 % (0-3); EOSINOPHILS % (AUTO) 3.8 % (0-5); MONOCYTES % (AUTO) 8.4 % (4-12); Mean Corpuscular Hemoglobin 24.5 pg (27.0-35.0); Mean Corpuscular Volume 79.8 fL (81-100); NEUTROPHILS % (AUTO) 49.1 % (40-74); Platelet Count 191 bil/L (150-400)
[2017-05-01] MEDS: 0.9% Sodium Chloride 1,000 ML IV SCH ×2 (07:06→14:14)
[2017-05-01 07:38] LABS: Magnesium 1.8 mg/dL (1.6-2.6); Unsaturated Iron Binding 233.3 ug/dL
[2017-05-01 08:01] VITALS: BP 96/63; PULSE 62; RESP 12; O2SAT 97
[2017-05-01 08:04] VITALS: BP 93/61
[2017-05-01] MEDS ORDERED: Potassium Chloride 20 mEq/15 mL 15mL Oral Soln PO ONE (08:10)
[2017-05-01] MEDS ORDERED: Magnesium Sulf 2 Gm/50mL Water 2 GM in IV Premix 1 EACH IV ONE (08:10)
[2017-05-01] MEDS ORDERED: Ferric Sod Gluc Complex Inj 125 MG in 0.9% Sodium Chloride 100 ML IV ONE (08:20)
--- NOTE | 2017-05-01 09:54 | DRSVH ---
PROCEDURE: X-RAY ABDOMEN WITH ERECT AND/OR DECUBITUS VIEWS ([id number]) INDICATIONS: f/u UGI TECHNIQUE: 2 views of the abdomen were acquired. COMPARISON: [facility], CR, XR UPPER GI BARIUM, 04/30/2017, 13:54. FINDINGS: Surgical changes and devices: None. Bowel: No pneumoperitoneum. The bowel gas pattern is normal. Small amount of contrast projects ove r the distal esophagus. Contrast has migrated into the colon. Soft tissues: No masses; visualized solid organ contours appear normal in size. No suspicious abdom inal calcifications. Bones: No suspicious bony abnormalities. IMPRESSION: 1. There appears to be a small amount of residual contrast within the distal esophagus. The majority has migrated into the colon. Dictated by: Chasity Paige M.D. on 05/01/2017 at 9:51 Approved by: Chasity Paige M.D. on 05/01/2017 at 9:52
--- NOTE | 2017-05-01 11:28 | NUR ---
Social Work: Multidisciplinary Rounds Pt discussed in rounds. Pt has a GI consult today. SCHOOL CHILDCARE ATTENDANT will complete Initial Assessment today due to multiple physicians working with pt. No d/c planning needs identified at this time. NYASIA Young
[2017-05-01 12:06] VITALS: BP 110/69; PULSE 61; RESP 16; O2SAT 99
--- NOTE | 2017-05-01 13:44 | NUR ---
Deflation of Gastric Balloon/Current Status Dr. Macarena Maradiaga deflated gastric balloon w/ primary RN assist. 4cc clear fluid obtained from balloon, site numbed w/ lidocaine, patient tolerated procedure well. Stated she feels much better since deflation, able to take in/keep down, 1/2 of sandwich & 200cc boost clear w/out n/v. Dr. Dunn paged @ [phone] to make him aware & to see about discharge.
--- NOTE | 2017-05-01 15:45 | NUR ---
Social Work: Discharge / Initial Assessment attempt Data: Pt is on day 4 of hospitalization. EMR reviewed. D/C orders are in. FILENET P8 DEVELOPER met with MD, no d/c planning needs at this time. FILENET P8 DEVELOPER met with pt at bedside, attempted initial assessment, pt declines at this time stating she is all ready to go home and denies any needs from FILENET P8 DEVELOPER. No d/c planning needs identified, FILENET P8 DEVELOPER will continue to follow if needs arise. Assessment: Pt who is independent at baseline. Plan: Pt will d/c home via POV with spouse today, No d/c planning needs identified, FILENET P8 DEVELOPER will continue to follow if needs arise. NYASIA Young
--- NOTE | 2017-05-01 15:45 | PCM.DIMED ---
Discharge Instructions Date of Service May 01, 2017 Dates of Hospitalization Apr 27, 2017 at 17:01 Discharge Diagnosis Discharge Diagnosis Gastric Outlet Obstruction Diet Discharge Diet: Heart Healthy Activity Discharge Activity: No restrictions Call your provider Call your provider for: Fever or Chills, Shortness of breath, Bleeding, Chest pain, Vomitting, Excessive diarrhea, Weakness (unilateral) Patient Instructions Follow-up Provider: Cris Moreau Follow-up with PCP in: 1 week Follow-up in: 1 week (Follow up with Dr. Harley Harvey at [facility] at .) Kurt Dunn MD May 01, 2017 15:45
--- NOTE | 2017-05-01 16:39 | NUR ---
Discharge Note Pt discharged @ 1625, spouse here to transport home. IV catheter x 1 in left forearm removed. Denied n/v upon discharge, able to take in 1/2 of sandwich & fluids before discharged w/ no n/v. Mentation @ baseline, denied pain. Discharged paperwork discussed & understood by all. All belongings gathered, nothing left behind. Patient & spouse walked to elevator by .
--- NOTE | 2017-05-01 23:03 | PCM.DC.MED ---
Discharge Summary Date of Service May 01, 2017 Dates of Hospitalization Date of Hospital Admission Apr 27, 2017 at 17:01 Date of Discharge: May 01, 2017 Providers: Admitting Physician: Imelda Osullivan MD Primary Care Physician: Cris Moreau Attending Physician: Kurt Dunn MD Diagnosis at Time of Discharge Diagnosis at Time of Discharge Gastric Outlet Obstruction Consultations Dr. Maradiaga of general surgery Procedures XRay, CTs & MRIs PROCEDURE: MRI STROKE PROTOCOL ([id number]) Pre- and post-contrast brain MRI, non-contrast brain MR angiogram, pre- and postcontrast neck MR angiogram INDICATIONS: Transient confusion for 60 min TECHNIQUE: Brain: Noncontrast axial T1 spin echo, axial T2 fast spin echo, sagittal and axial FLAIR, coronal T2 fast spin echo, axial gradient echo, axial diffusion and ADC through the brain. After the administration of contrast, axial 3D VIBE of the cranial vasculature and brain. Brain MRA: Non-contrast 3-D time of flight MR angiogram, with multiple maximum- intensity-projection (MIP) reformats performed. Neck MRA: Axial and sagittal TruFISP through the neck. Coronal dynamic MR angiogram during administration of contrast in the arterial and venous phases, with 3-dimenstional nwotkod-xgleqmpsm-ljuobubtai (MIP) reformats constructed from subtraction images. COMPARISON: [facility], CT, BRAIN ([facility]), 04/27/2017, 15:08. [facility], CT, HEAD WITHOUT CONTRAST, 10/11/2011, 21:32. FINDINGS: Image quality: Excellent. BRAIN: CSF spaces: Ventricles are normal in size and shape. Basal cisterns are patent. No extra-axial fluid collections. Focal CSF prominence overlying the right greater than left frontal lobes is present. Brain: No acute intracranial bleeds or mass effects. Curvilinear cortical low- grade echo signal intensity overlies the right greater than left frontal lobes, compatible with remote sequelae of hemorrhage. No evidence of acute hemorrhage. Moderate cortical and subcortical FLAIR signal elevation within the right anterior and anterolateral frontal lobe. Smaller regions of subcortical and cortical FLAIR signal elevation within the left anteromedial frontal and right anterior temporal lobes. Alfred-white matter interface is normal. Diffusion weighted images show no acute ischemic insults. Brainstem appears normal. Normal intravascular flow voids are present. No abnormal intracranial enhancement. Skull and face: Calvarial marrow signal is normal. Orbits appear normal. Sinuses: Sinuses and mastoids are clear. BRAIN MR ANGIOGRAM: Anterior circulation: Intracranial internal carotid arteries are normal in size and enhancement. The flow within the paired anterior cerebral arteries is normal and symmetric. The flow within the middle cerebral arteries is normal and symmetric. The anterior communicating artery is seen. No stenoses, occlusions, or aneurysms. Posterior circulation: The visualized portions of the vertebral arteries demonstrate normal caliber, and join to form a normal appearing basilar artery. The flow within the posterior cerebral arteries is normal and symmetric. No stenoses, occlusions, or aneurysms. NECK MR ANGIOGRAM: Family Support Specialist T2 imaging through the neck is grossly unremarkable. Thoracic aortic arch is widely patent. There is variant branching anatomy. The left vertebral artery arises directly from the thoracic aortic arch. The innominate, right subclavian, and right vertebral arteries are patent. The right common, internal, and external carotid arteries are patent. The left common, internal, and external carotid arteries are patent. The left vertebral artery is patent. The left subclavian artery is patent. IMPRESSION: BRAIN MRI: 1. No acute intracranial abnormality. No recent infarct. 2. Sequelae of remote intracranial hemorrhage is present. BRAIN MR ANGIOGRAM: Negative cerebral MR angiography. NECK MR ANGIOGRAM: 1. Variant branching anatomy of the thoracic aorta. 2. No internal carotid artery stenosis bilaterally. 3. Patent bilateral vertebral arteries. The estimate of stenosis included in the report of the imaging study was calculated using the NASCET method Dictated by: Chasity Paige M.D. on 04/28/2017 at 14:02 Approved by: Chasity Paige M.D. on 04/28/2017 at 14:08 Cardiac Echo Impression Echocardiogram Report Name: SHANEL KENDRICK MStudy Date: 04/28/2017 Height: 66 in Hospital Exam Location: [facility] Weight: 187 lb Gender: Female BSA: 1.9 m2 : 1950 Age: 66 yrs BP: 93/57 mmHg Reason For Study: Hypotension Ordering Physician: Performed By: [facility] Interpretation Summary 1) Normal left ventricular thickness, size, wall motion, and systolic function (EF 60-65%). 2) Normal right ventricular size and function. 3) No significant valvular abnormalities. 4) No prior Echo available for comparison. Brief History Per Dr. Robledo's H&P: "This is a 66-year-old female who was fine this morning , ran some errands, little bit busy, and then went out to get some sun on the deck and she was out there for an hour, hour and a half. was in the house. Around 2 p.m., she came in from the deck and she was confused.. She kept asking questions to him, over and over again, the same things, "Did I get my hair fixed today, what day is it, did I call my friend," and she kept asking these over and over again. She looked hot, and as I mentioned, she had been out and had not been drinking. After about 20 minutes of this, the brought the patient to the emergency department, and within 60 minutes, all these symptoms hacleared. She scored an NIH of zero in the emergency department. She is back to baseline. She never had any weakness, dysarthria, or any other focal deficits beyond this mild confusion.the patient was admitted to the hospitalist service for further evaluation and treatment. Hospital Course The patient is a 66-year-old female with about one hour of confusion, resolved following being out in the sun for an hour and a half. The patient's convinced her to come to the emergency room. She received Dilaudid and then admitted to the hospitalist service for further evaluation and treatment. # Possible TIA, present at the time of admission. Improved - Will continue patient's aspirin and Lipitor. - MRI, MRA, per stroke protocol, failed to reveal the source of her problem. - She was cleared by Speech therapy. - I suspect his symptoms were secondary to severe orthostatic hypotension, which was demonstrated here after admission. # Orthostatic hypotension, present at time of admission. Active with his systolic blood pressure dropping to 50-60 when standing and reproducing some of her symptoms. - Suspect this is due to dehydration as patient has been unable to tolerate much in the way of by mouth liquids and/or foods. This was apparent after listening to her history to be due to her lap band which she has been told needs to have some of "the fill" removed. - The dehydration was likely exacerbated by her lying in the sun for an hour and a half prior to admission. - Continue IV hydration as patient continues to have some orthostatic hypotension and increase in pulse rate when standing along with associated dizziness. Also patient continues to have extremely poor by mouth intake and after eating 25% of her meal yesterday she vomited twice. - As patient is unusually bautista, we checked an early a.m. serum cortisol level to rule out [place]'s disease, which could explain her orthostatic hypotension. However, the cortisol level was normal. # Poor by mouth intake leading to the above problems, present at the time of admission. Active - Patient tried eating this afternoon and after eating 25% of her meal she vomited twice. Patient is becoming very frustrated with her situation. - I have consulted Dr. Ashwini lópez of general surgery who has suggested an upper GI to further evaluate her anatomy. - Patient may need some of the "fill" removed from her lap band. - The upper GI showed the following: "Esophagus: There is normal esophageal peristalsis. No strictures, extrinsic mass effects, or diverticula. Significant multiple episodes of gastroesophageal reflux were identified extending to the midesophagus. Stomach: A lap band is noted surrounding the stomach. Throughout the course of the examination, contrast flowed freely up the stomach. However, even at the conclusion of the procedure, there was no contrast transit from the stomach into the small bowel". - We will reconsult general surgery for their opinion as to what could be done to help the patient with this problem of retention of gastric contents and presenting with severe dehydration and hypotension causing altered level of consciousness. .Dr. Zhou very kind enough to see the patienttoday and remove some of the "fill" from her lap band. The patient is feeling much better today and after tolerating her lunch is ready to be discharged. # Morbid obesity, present times admission. Stable - Patient lost approximately 80 pounds since her lap band procedure over 10 years ago. - We will repeat consult general surgery for retention of gastric contents as mentioned above. # Depression, present at the time of admission. Chronic - Continue patient's paroxetine. # Gastroesophageal Reflux disease, present at the time of admission. Chronic - We will continue patient's pantoprazole DREmily # Macrocytic anemia, present at the time of admission. Active - Was likely not so obvious on admission, as this patient was so dehydrated at the time of admission. - We will check a serum iron panel and B12 and folate levels as patient may have malnutrition to the above factors. Disposition: The patient will be discharged home today. Exam Vital Signs (Last) Date Time Temp Pulse Resp B/P Pulse Ox O2 Delivery O2 Flow Rate FiO2 05/01/17 12:06 36.8 61 16 110/69 99 Room Air Exam General: Patient is lying supine in bed during my visit and she was in no apparent distress. The patient is feeling much better after Dr. Maradiaga removed some of "the fill" from her lap band. HEENT: Head is atraumatic and normocephalic. Eyes: Pupils are equally round and reactive to light and accommodation. Extraocular muscles are intact. Sclera are white, anicteric. Subconjunctival mucosa is pink. Ears and nose are unremarkable. Oropharynx: There are no mucosal lesions, there is no thrush , there is no pharyngitis. Neck: Is supple, there are no nodes, or masses or tenderness. Chest: Is clear to auscultation and percussion. There are no rales, rhonchi, wheezes or rubs. Heart: Rate, rhythm is regular. There is no new murmur, rub or gallop. Abdomen: Good bowel sounds are present. Abdomen is obese, soft, nontender, no organomegaly or masses were appreciated. Extremities: Are symmetrical and well perfused. There is no edema, there is no cellulitis, no rash. Neurologic: There are no focal neurological deficits. Cranial nerves II through XII are intact. There are no sensory or motor deficits. Psychiatric: Patients mood is calm and she shows no sign of agitation. Genital: Deferred Rectal: Deferred Test 04/27/17 15:13 04/28/17 10:20 04/29/17 06:35 05/01/17 06:15 Erythrocyte Sedimentation Rate 42mm/hr (0-40) Prothrombin Time 10.6sec (8.1-12.5) Prothromb Time International Ratio 0.99ratio Activated Partial Thromboplast Time 23.8sec (22.8-33.0) Troponin T < 0.010ug/L (0.0-0.011) Thyroid Stimulating Hormone (TSH) 2.940uIU/mL (0.450-4.500) Free Thyroxine 1.08ng/dL (0.82-1.77) Hold Sinclair Top Tube Received (Received) Alcohols < 10mg/dL (0-10) Urine Color Yellow (YELLOW) Urine Appearance Clear (CLEAR,HAZY) Urine pH 5.5 (5.0-8.0) Urine Specific Sylvester 1.023 (1.003-1.035) Urine Protein Negativemg/dL (NEG,TRACE) Urine Glucose (UA) Negativemg/dL (NEGATIVE) Urine Ketones 40mg/dL (NEGATIVE) Urine Occult Blood Negative (NEGATIVE) Urine Nitrite Negative (NEGATIVE) Urine Bilirubin Small (NEGATIVE) Urine Ictotest Negative (Negative) Urine Urobilinogen Normalmg/dL (NORMAL) Urine Leukocyte Esterase Negative (NEGATIVE) Urine RBC 0-2/hpf (0-2) Urine WBC 0-5/hpf (0-5) Urine Epithelial Cells Few/hpf (NONE-MOD) Urine Crystals None seen (NONE SEEN) Urine Bacteria None/hpf (NONE-FEW) Urine Hyaline Casts None/lpf (NONE) Urine Granular Casts None seen (NONE SEEN) Urine Waxy Casts None seen (NONE SEEN) Urine Red Blood Cell Casts None seen (NONE SEEN) Urine White Blood Cell Casts None seen (NONE SEEN) Urine Mucus Present (None Seen) Urine Trichomonas None seen (NONE SEEN) Urine Yeast None (NONE SEEN) Urinalysis Comment None Urine Culture Reflexed Not indicated Urine Opiates Screen Negative Urine Methadone Screen Negative Urine Barbiturates Screen Negative Urine Amphetamines Screen Negative Urine Benzodiazepines Screen Negative Urine Cocaine Metabolite Screen Negative Urine Cannabinoids Screen Negative Procalcitonin 0.03ng/mL (0.00-0.08) Cortisol 10.5ug/dL (.) White Blood Count 4.5th/mm3 (3.8-10.1) Red Blood Count 4.25mil/mm3 (3.90-5.20) Hemoglobin 10.4g/dL (12.0-15.6) Hematocrit 33.9% (35.0-46.0) Mean Corpuscular Volume 79.8fL (81-100) Mean Corpuscular Hemoglobin 24.5pg (27.0-35.0) Mean Corpuscular Hemoglobin Concent 30.7% (32.0-37.0) Red Cell Distribution Width 15.4% (12.3-15.4) Platelet Count 191bil/L (150-400) Neutrophils (%) (Auto) 49.1% (40-74) Lymphocytes (%) (Auto) 37.8% (14-46) Monocytes (%) (Auto) 8.4% (4-12) Eosinophils (%) (Auto) 3.8% (0-5) Basophils (%) (Auto) 0.9% (0-3) Reticulocyte Count,Calculated 0.9% (0.6-2.6) Sodium Level 145mEq/L (134-144) Potassium Level 3.7mEq/L (3.5-5.2) Chloride Level 110mEq/L (97-108) Carbon Dioxide Level 20mmol/L (18-29) Blood Urea Nitrogen 4mg/dL (8-27) Creatinine 0.76mg/dL (0.57-1.00) Estimat Glomerular Filtration Rate 110mL/min (>59) Glucose Level 81mg/dL (60-99) Calcium Level 9.0mg/dL (8.5-10.1) Magnesium Level 1.8mg/dL (1.6-2.6) Iron Level 32ug/dL (35-150) Total Iron Binding Capacity 265ug/dL (250-450) Percent Iron Saturation 12%sat (15-50) Unsaturated Iron Binding 233.3ug/dL Ferritin 15ng/mL (13-150) Total Bilirubin 0.5mg/dL (0.0-1.2) Aspartate Amino Transf (AST/SGOT) 14U/L (0-50) Alanine Aminotransferase (ALT/SGPT) 6U/L (0-32) Alkaline Phosphatase 65U/L (25-165) Total Protein 5.3g/dL (6.4-8.4) Albumin 3.3g/dL (3.4-5.0) Microbiology Results Name: SHANEL KENDRICK Age/Sex: 66/F Attend Dr: Kurt Dunn Acct: [id number] Unit: [id number] Status: ADM Camryn Location: [facility] [place] 248-1 Re04/27/17 Disch: Specimen: [id number] Collected: 04/27/17 Status: COMP Req#: [id number] Received: 04/27/17 Source: RANDOM Sp Desc : ISIDRO Akins Dr: Clinton Brown DO Ordered: URINE CULT Procedure Result Verified Site Microbiology GONZALO CULT URINE Final 04/28/17-0752 Organism 1 MIXED UROGENITAL DANIEL U COLONY COUNT/QUANTITY 50,000-100,000 CFU/ml Discharge Medications Discharge Medications Aspirin (Aspirin) 81 Mg Tablet 81 MG PO QAM (Reported) Atorvastatin (Lipitor) 10 Mg Tab 10 MG PO HS (Reported) Pantoprazole DR (Pantoprazole DR) 20 Mg Tablet.dr 20 MG PO QAM (Reported) Paroxetine (Paroxetine) 20 Mg Tablet 20 MG PO HS (Reported) Followup Plan Disposition: Patient is being discharged home. Discharge Diet: Heart Healthy Discharge Activity: No restrictions Follow-up Provider: Cris Moreau Follow-up with PCP in: 1 week Follow-up in: 1 week (Follow up with Dr. Harley Harvey at [facility] at .) Time spent Time spent on discharging this patient was greater than 35 minutes, over half of which was involved in counseling and coordination of care. Kurt Dunn MD May 01, 2017 23:03
== END 2017-05-01 16:25 | disposition home or self-care (01) | DRG 381 ==
LOC: SED 14:51 → OBSVTOIN 17:01 → MOC 17:01
PROVIDERS: ADMIT Hospitalist; ATTEND Hospitalist
DX: K31.1 Adult hypertrophic pyloric stenosis (principal); G45.9 Transient cerebral ischemic attack, unspecified; K21.9 Gastro-esophageal reflux disease without esophagitis; R29.700 NIHSS score 0; F32.9 Major depressive disorder, single episode, unspecified; I95.1 Orthostatic hypotension; Z98.84 Bariatric surgery status

== ENCOUNTER 2017-05-25 13:21 | Emergency (ER) | payer OTHER ==
[~2017-05-25] VITALS: Ht 165.1 cm; Wt 78.6 kg
[~2017-05-25 13:21] MED LIST changes: -ASPI-628 PO; +ASPI-973 PO; -OMEP-113 PO; +PANT20TA2 PO
[2017-05-25 13:25] VITALS: BP 68/52; PULSE 91; RESP 18; O2SAT 100
[2017-05-25] MEDS ORDERED: 0.9% Sodium Chloride 1,000 ML IV ONE ×2 (13:32→15:45)
--- NOTE | 2017-05-25 13:34 | ED.REPORT ---
HPI-GI Bleed Date of Service May 25, 2017 ED Provider: Jose Dubon MD Pt is a 66 y/o female w/ a hx of lap band with prior gastric outlet obstruction , GERD, hiatal hernia, presenting to the ED c/o coffee-ground emesis onset about 3 days ago. She saw her gastric surgeon in follow-up who made a plan to remove her lap band but she is waiting for her insurance to clear it. For the past few days she has been experiencing vomiting which is typical for her due to the gastric outlet obstruction but it has been coffee-ground emesis which is abnormal. She was seen at urgent care who found her emesis to be heme occult positive. She was also found to exhibit orthostatic hypotension with systolic BP dropping into 60s-70s from 120 while lying. She denies any bright red blood in her emesis, bloody stool, tarry or melanotic stool. See below for further history regarding her lap band and recent admission. She had laparoscopic gastric banding done in [place] about 12 years ago. She reportedly did relatively well after that until 2012 when she had problems with tolerating food prompting investigation. She reportedly saw Gastroenterology in [place] who got an upper GI and also performed an endoscopy and told her she had a hiatal hernia. At that time, she tells me that there was nothing that was done but after the endoscopy, she felt better and she felt like she was doing okay. Again, about a couple of months ago, she started having recurrent problems with tolerating any food with repeated emesis, and she saw Dr. Holt who reviewed her endoscopy and adjusted her proton pump inhibitor treatment, but she reportedly again went to [place] to see a ammunition and explosives handler who repeated an endoscopy and suggested to her that maybe she should have some of the fill in the band removed, but she did not actually see a surgeon over the last 12 years. She was recently admitted to [facility] from April 27- after presenting to the ED with complaints of confusion and dizziness and was found to be orthostatic with her systolic BP dropping to 50-60 upon standing as well as reproduction of her symptoms. 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 Surgeon Dr. Maradiaga saw her during admission who removed some of her gastric banding "fill" which relieved her symptoms. She was discharged with plan to follow-up with her bariatric surgeon. Nursing Notes Stated Complaint: LOW BP SENT BY Chief Complaint: General Complaint Nursing Notes Reviewed: Yes Allergies: Coded Allergies: citalopram (Verified Allergy, Unknown, 04/20/15) fluoxetine (Verified Allergy, Unknown, 04/20/15) Scheduled Aspirin (Aspirin) 81 Mg Tablet 81 MG PO QAM Atorvastatin (Lipitor) 10 Mg Tab 10 MG PO HS Pantoprazole DR (Pantoprazole DR) 20 Mg Tablet.dr 20 MG PO QAM Paroxetine (Paroxetine) 20 Mg Tablet 20 MG PO HS Scheduled PRN Ondansetron ODT (Zofran ODT) 4 Mg Tablet 4 MG PO Q4H PRN PRN For Nausea General Time Seen by Provider: 15:30 Chief Complaint Chief Complaint: Vomiting coffee grounds Hx Obtained From: Patient Arrived By: Walk-in Onset Occurred: 3 days ago Symptom Duration: Since onset Severity: Current: No pain currently Severity: Maximum: No pain Recent Healthcare: Recent doctor visit, Recent hospitalization, Recent testing , Previous diagnosis, Previous surgery, Prior workup Similar Sx Previous: No Past Medical History Past Medical History Notes: Bariatric surgeon: Susannah Kenyon GI: [facility] Past Medical History 1. Hiatal hernia with reflux disease. 2. Lap band surgery 12 years ago. 3. Depression. 4. Concussion. Spent several days at [facility] in 2009. 5. History of gastric outlet obstruction thought to be secondary to lap band complication Past Surgical History Lap band Family History Noncontributory Smoking History Never Smoker Social History Alcohol Use: "Social" Other Social History: Good social support, , From out of town Ambulatory Status Independent Review of Systems GI: Reports: Hematemesis, Nausea, Vomiting, Denies: Bloody/tarry stool, Melena Complete sys rev & neg: except as marked. Physical Exam Initial Vital Signs Vital Signs (First) Date Time Temp Pulse Resp B/P Pulse Ox O2 Delivery O2 Flow Rate FiO2 05/25/17 13:25 36.5 91 18 68/52 100 Room Air Initial VS: Reviewed, Vital signs abnormal Head / Eyes: Atraumatic, Normocephalic ENT: Mucous membranes moist, Conjunctiva normal, No scleral icterus Neck: Supple, Full range of motion Extremities: Vascular intact, Neuro intact, No swelling Skin: Warm, Dry, No cyanosis Neurologic: Alert, Oriented, Nonfocal Psychiatric: Mood/affect normal, Behavior normal, Normal thought content General/Constitutional: Awake, Alert, No acute distress, Cooperative, Not toxic appearing Respiratory / Chest: Breath sounds NL, Breath sounds = bilat, No respiratory distress, No rales, No rhonchi, No wheezing Cardiovascular: Heart rate NL, Regular rhythm, Heart sounds NL, No murmurs Abdomen: Atraumatic, Soft, Non-tender Rectum / Perineum: Atraumatic, No gross blood, No discharge, No fecal impaction , No fissures, No hemorrhoids, No mass Rectal for Blood: Positive: Blood - occult heme + (very mild) No melena Interpretation & Diagnostics Lab Results Interpretation Result Diagram: 05/25/17 1415 05/25/17 1415 Test 05/25/17 14:15 05/25/17 14:22 05/25/17 15:41 White Blood Count 5.5th/mm3 (3.8-10.1) Red Blood Count 4.74mil/mm3 (3.90-5.20) Hemoglobin 12.3g/dL (12.0-15.6) Hematocrit 38.2% (35.0-46.0) Mean Corpuscular Volume 80.6fL (81-100) Mean Corpuscular Hemoglobin 25.9pg (27.0-35.0) Mean Corpuscular Hemoglobin Concent 32.2% (32.0-37.0) Red Cell Distribution Width 17.6% (12.3-15.4) Platelet Count 244bil/L (150-400) Neutrophils (%) (Auto) 58.9% (40-74) Lymphocytes (%) (Auto) 30.6% (14-46) Monocytes (%) (Auto) 8.9% (4-12) Eosinophils (%) (Auto) 0.9% (0-5) Basophils (%) (Auto) 0.5% (0-3) Prothrombin Time 10.7sec (8.1-12.5) Prothromb Time International Ratio 1.00ratio Sodium Level 139mEq/L (134-144) Potassium Level 3.6mEq/L (3.5-5.2) Chloride Level 99mEq/L (97-108) Carbon Dioxide Level 21mmol/L (18-29) Blood Urea Nitrogen 12mg/dL (8-27) Creatinine 0.90mg/dL (0.57-1.00) Estimat Glomerular Filtration Rate 90mL/min (>59) Glucose Level 99mg/dL (60-99) Calcium Level 9.8mg/dL (8.5-10.1) Total Bilirubin 0.7mg/dL (0.0-1.2) Aspartate Amino Transf (AST/SGOT) 19U/L (0-50) Alanine Aminotransferase (ALT/SGPT) 10U/L (0-32) Alkaline Phosphatase 67U/L (25-165) Total Protein 6.8g/dL (6.4-8.4) Albumin 3.9g/dL (3.4-5.0) Hold Sinclair Top Tube Received (Received) Urine Color Dark yellow (YELLOW) Urine Appearance Clear (CLEAR,HAZY) Urine pH 5.5 (5.0-8.0) Urine Specific [place] 1.028 (1.003-1.035) Urine Protein 30mg/dL (NEG,TRACE) Urine Glucose (UA) Negativemg/dL (NEGATIVE) Urine Ketones 40mg/dL (NEGATIVE) Urine Occult Blood Negative (NEGATIVE) Urine Nitrite Negative (NEGATIVE) Urine Bilirubin Negative (NEGATIVE) Urine Urobilinogen 2.0mg/dL (NORMAL) Urine Leukocyte Esterase Negative (NEGATIVE) Urine RBC 0-2/hpf (0-2) Urine WBC 0-5/hpf (0-5) Urine Epithelial Cells Few/hpf (NONE-MOD) Urine Crystals None seen (NONE SEEN) Urine Bacteria None/hpf (NONE-FEW) Urine Hyaline Casts None/lpf (NONE) Urine Granular Casts None seen (NONE SEEN) Urine Waxy Casts None seen (NONE SEEN) Urine Red Blood Cell Casts None seen (NONE SEEN) Urine White Blood Cell Casts None seen (NONE SEEN) Urine Mucus None seen (None Seen) Urine Trichomonas None seen (NONE SEEN) Urine Yeast None (NONE SEEN) Urinalysis Comment None Urine Culture Reflexed Not indicated ECG Interpretation Time: 15:54 Interpreted by: ED physician Normal ECG Interpretation: Normal ECG w/ rate of... (82), Normal rate, Normal sinus rhythm, No acute ischemic changes, Normal QRS, Normal axis, Normal intervals, No change from prior ECGs, Adequate tracing X-Ray Chest Interpretation Chest Xray Interpretation: IMPRESSION: Prior gastric left and placement, superimposed on the EG junction, no acute disease over the chest. Dictated by: Scott Gordon M.D. on 05/25/2017 at 14:17 Approved by: Scott Gordon M.D. on 05/25/2017 at 14:17 View: Portable, 1 view Interpretation / Wet Read by: Interpret - Radiologist Re-Eval/Medical Decision Med Decision/Clinical Course 66-year-old female history of lap band and recurrent vomiting times several months which she was recently admitted for an thought to be due to her lap band. She is said to have this repaired at [facility]. She reports possible coffee-ground emesis for several days. Last episode earlier this morning. She feels well now. Her hemoglobin is stable actually increased from several weeks ago. She is guaiac positive but no gross blood. She had no evidence of the vomiting here. She requested to go home. I did discuss case with GI who recommends an EGD on Saturday or Saturday by her GI doctor as an outpatient. She will follow up with her GI doctor Saturday and her general surgeon at [facility] this week. Return precautions given. Re-Evaluation/Progress : Time of Eval: 16:12 Re-Evaluation/Progress Note: Pt rechecked. No vomiting while in the ED. Informed pt of plan for discharge. Pt understands and agrees with plan for discharge. F/U instructions and RTER warnings given. All questions addressed. Consultation : Referral / Consult Name: Jatinder Duarte MD Call Returned at: 15:59 Ad Terminal Makeup Operator: Agrees with eval, Agrees with plan Note: Case discussed with GI. Recommends that she can be discharged to obtain endoscopy Saturday or Saturday if she desires. Counseled Regarding: Diagnosis, Lab results, Need for follow-up, When/why to return to ED Discharge & Departure Impression: Primary Impression: Hematemesis Nausea presence: with nausea Qualified Code: K92.0 - Hematemesis Additional Impressions: Gastric outlet obstruction Hx of laparoscopic gastric banding Vomiting Vomiting type: unspecified Vomiting Intractability: non-intractable Nausea presence: with nausea Qualified Code: R11.2 - Nausea with vomiting, unspecified Disposition: Home Discharge Condition All VS Reviewed: Yes Condition: Improved Patient Instructions: Hematemesis (ED) Additional Instructions: Labs today were reassuring. There was no sign of anemia. Take Zofran as directed for nausea or vomiting. I consulted with GI today who said that it is OK for you to be discharged and he recommended that you obtain an endoscopy on either Saturday or Saturday. You can call your GI physician in [place] to set this up or contact Dr. Holt again. Dr. Velasco's contact information is listed below. Return to the Emergency Department if you experience persistent/bloody/coffee- ground vomiting, you are unable to keep fluids down, lightheadedness, dizziness , fever, severe abdominal pain, or for other concerning symptoms. Referrals: Cris Moreau (PCP) Sujit Holt MD Scribe Attestation Portions of this note were transcribed by Santiago Cornell. I, Dr. Dubon personally performed the history, physical exam and medical decision-making; I reviewed and confirmed the accuracy of the information in the transcribed note. copies to: Sujit Holt MD; Cris Moreau Ben M MD May 25, 2017 13:34 SANTIAGO CORNELL May 25, 2017 14:00
[2017-05-25 13:44] VITALS: BP 138/74; PULSE 84; RESP 12; O2SAT 99
--- NOTE | 2017-05-25 14:19 | DRSVH ---
PROCEDURE: X-RAY CHEST ONE VIEW, PORTABLE ([id number]) INDICATIONS: gi bleed TECHNIQUE: One view of the chest was acquired. COMPARISON: None. FINDINGS: Surgical changes and devices: Gastric left than noted over the epigastrium. Lungs and pleura: No pleural effusions or pneumothorax. Lungs are clear. Mediastinum: Mediastinal contours appear normal. Heart size is normal. Bones and chest wall: No suspicious bony lesions. Overlying soft tissues appear unremarkable. IMPRESSION: Prior gastric left and placement, superimposed on the EG junction, no acute disease over the chest. Dictated by: Scott Gordon M.D. on 05/25/2017 at 14:17 Approved by: Scott Gordon M.D. on 05/25/2017 at 14:17
[2017-05-25 14:27] LABS: BASOPHILS % (AUTO) 0.5 % (0-3); EOSINOPHILS % (AUTO) 0.9 % (0-5); MONOCYTES % (AUTO) 8.9 % (4-12); Mean Corpuscular Hemoglobin 25.9 pg (27.0-35.0); Mean Corpuscular Volume 80.6 fL (81-100); NEUTROPHILS % (AUTO) 58.9 % (40-74); Platelet Count 244 bil/L (150-400)
[2017-05-25] MEDS ORDERED: ONDA4TAB9 PO (15:44)
[2017-05-25 15:55] VITALS: BP 119/63; PULSE 70; RESP 22; O2SAT 100
[2017-05-25 15:56] VITALS: BP 124/63; PULSE 72; RESP 19; O2SAT 100
[2017-05-25 15:57] VITALS: BP 111/59; PULSE 80
[2017-05-25 16:14] LABS: APPEARANCE,URINE CLEAR (CLEAR,HAZY); COLOR,URINE DARK YELLOW (YELLOW)
[2017-05-25 16:15] LABS: OCCULT BLOOD,URINE NEGATIVE (NEGATIVE); PH,URINE 5.5 (5.0-8.0)
[2017-05-25 16:28] VITALS: BP 127/90; PULSE 70; RESP 18; O2SAT 100
== END 2017-05-25 16:29 | disposition home or self-care (01) ==
LOC: SED 13:21
DX: K92.0 Hematemesis (principal); K31.1 Adult hypertrophic pyloric stenosis; Z79.82 Long term (current) use of aspirin; Z88.8 Allergy status to other drugs, medicaments and biological substances
CPT/HCPCS: 36415; 71010; 80053; 81000; 82272; 85025; 85610; 86850; 93005; 96360; 96361; 99285; J7030